=== PATIENT | female | born 2000 | race Caucasian/White ===

== ENCOUNTER 2021-03-14 22:37 | Emergency (ER) | payer OTHER, SELFPAY ==
--- NOTE | ~2021-03-14 | XR_ITS ---
EXAMINATION: XR HAND, RIGHT CLINICAL INFORMATION: Laceration. COMPARISON: None TECHNIQUE: PA, lateral, and oblique views of the right hand. FINDINGS: No radiopaque foreign body. The bones and soft tissues are normal. No fracture. Alignment is anatomic. Joint spaces are maintained. No erosions or soft tissue calcifications. XR/XR hand RT min 3V IMPRESSION: Normal right hand. There is no radiopaque foreign body.
[2021-03-14 22:45] VITALS: BP 109/78; PULSE 72; RESP 16; TEMP 36.9; O2SAT 97; BMI 22.8
--- NOTE | 2021-03-14 23:17 | ED.SKABFB ---
HPI - Skin/Abscess/Foreign Bdy General Chief complaint: Skin/Abscess/Foreign Body Stated complaint: Lac Time Seen by Provider: 03/14/21 23:12 Source: patient Mode of arrival: ambulatory Limitations: no limitations History of Present Illness HPI narrative: Patient is a 20-year-old female with no significant past medical history who was holding a large serrated knife when she bumped into a table and cut herself on her right hand, between her thumb and 2nd finger. She states she has full range of motion and can feel the tips of both fingers, no injury to her wrist. She applied bandages at home and the bleeding is controlled currently. Denies any numbness or tingling. 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 Related Data Allergies Allergy/AdvReac Type Severity Reaction Status Date / Time No Known Allergies Allergy Verified 03/14/21 22:49 Review of Systems Review of Systems: Yes all other systems are reviewed and are negative PMFSH Past Medical History Medical History No known health problems Social History Social History Advance Directives: No Advance Directives Information Provided: Yes Patient : No Physical Exam Vital Signs: Vital Signs: Last Vital Signs Temp 98.5 F 03/14/21 22:45 Pulse 72 03/14/21 22:45 Resp 16 03/14/21 22:45 BP 109/78 03/14/21 22:45 Pulse Ox 97 03/14/21 22:45 Body Mass Index 22.8 Const: General: cooperative, healthy appearing, comfortable, no acute distress and well developed Orientation/consciousness: patient oriented x3 Limitations: no limitations HENMT: Head: Yes normal to inspection Eyes: General: appearance normal, both eyes and all related structures Neck: Neck: Yes normal visual inspection and Yes full ROM Resp: Effort & Inspection: normal respiratory effort and able to speak in complete sentences Skin: General skin exam: no rashes or lesions noted Neuro: General: patient oriented x3 Extrem: General: Yes normal to inspection Right upper extremity: Extremity exam: right hand (3 cm linear laceration on the thenar region of the right hand. ) Details: normal capillary refill, neuromotor exam normal, neurosensory exam normal, tendon exam normal and normal ROM of fingers; Negative for no unusual warmth, no swelling, no abrasions, no ecchymosis and no foreign bodies MDM - Skin/Abscess/Foreign Bdy Imaging Data hand x-ray: Attestation: I personally reviewed and interpreted this imaging study as follows: Radiologist's impression: [address] [address] XRay Report Signed Patient: Mike Diana MR#: [id number] : 2000 Acct:[id number] Age/Sex: 20 / F ADM Date: 03/14/21 Loc: HO.ED Attending Dr: Ordering Physician: Inocencia Boateng PA-C Date of Service: 03/14/21 Procedure(s): XR hand RT min 3V Accession Number(s): [id number] cc: Inocencia Boateng PA-C~ EXAMINATION: XR HAND, RIGHT CLINICAL INFORMATION: Laceration.? COMPARISON: None? TECHNIQUE: PA, lateral, and oblique views of the right hand. FINDINGS: No radiopaque foreign body. The bones and soft tissues are normal. No fracture. Alignment is anatomic. Joint spaces are maintained. No erosions or soft tissue calcifications.? XR/XR hand RT min 3V IMPRESSION: Normal right hand. There is no radiopaque foreign body. Dictated By: KAYY ALVA MD Signed By: <Electronically signed by KAYY ALVA MD in OV> 03/14/21 0642 DD/ 0798 TD/TT:? Optician Apprentice Dispensing: RADHA Procedures Laceration Laceration 1: Site: hand Side (If applicable): right Size (cm): 3 Description: linear Depth: simple, single layer Local Anesthetic: lidocaine 2% Amount of anesthesia used (mL): 5 Pre-repair: wound explored, irrigated extensively and extensive debridement Skin layer closed with: nylon Size (cm): 5-0 Number of sutures: 6 Technique: simple, interrupted Discharge Plan Discharge Clinical Impression: Laceration Patient Disposition: Home, Self-Care Instructions: Laceration (ED), Stitches Removal (ED) Additional Instructions: As discussed, please have your sutures removed in 8-10 days at your PCP office, any urgent care or emergency department. If you notice any redness, any drainage from the wound that is foul smelling, or streaking redness up the arm, please return to the emergency department [facility]. Stand Alone Forms: Work/School Release
[2021-03-14] MEDS: Lidocaine HCl 2 % MPF 5 ML VIAL SUBCUT (23:22)
== END 2021-03-15 00:19 | disposition home or self-care (01) ==
LOC: HO.ED 03-15 00:11
PROVIDERS: Emergency Provider Emergency Medicine Emergency Medical Services; PCP Pediatrics
DX: S61.411A Laceration without foreign body of right hand, initial encounter (principal); M79.641 Pain in right hand; W26.0XXA Contact with knife, initial encounter; Y93.9 Activity, unspecified; Y92.9 Unspecified place or not applicable; Y99.9 Unspecified external cause status
CPT/HCPCS: 12002; 73130; 99283; 99284

== ENCOUNTER 2021-10-19 20:31 | Emergency (ER) | payer OTHER, SELFPAY ==
--- NOTE | ~2021-10-19 | CT_ITS ---
EXAMINATION: CT ABDOMEN AND PELVIS WITH CONTRAST CLINICAL INFORMATION: Epigastric abdominal pain COMPARISON: None TECHNIQUE: Multidetector volumetric images were obtained from the superior aspect of the liver through the pubic symphysis following administration 85 mL of Omnipaque 350 intravenous contrast. Sagittal and coronal reformatted images were obtained on the technologist's workstation. Oral contrast: No This CT examination was performed using dose optimization techniques as appropriate, variously including the following: *Automated exposure control *Adjustment of mA and/or kV according to patient size (this includes techniques or standardized protocols for targeted exams where dose is matched to indication/reason for exam; i.e. extremities or head) *Use of iterative reconstruction technique DLP: 303 mGy-cm FINDINGS: LUNG BASES: The visualized lung bases are unremarkable. LIVER, GALLBLADDER, AND BILIARY TREE: The liver is normal in size, shape, and attenuation. No focal hepatic lesion or biliary ductal dilatation is present. The gallbladder appears contracted and is not well evaluated. PANCREAS: There is a 0.3 cm hypodensity noted in the pancreatic body, as on coronal image 30. No peripancreatic inflammatory change. SPLEEN: Unremarkable. ADRENAL GLANDS: Unremarkable. KIDNEYS AND URETERS: Bilateral nephrograms are symmetric. No hydronephrosis or obstructing calculus identified. Subcentimeter hypodensity in the upper left kidney statistically favors a cyst; no follow-up recommended. BLADDER: Unremarkable. GASTROINTESTINAL TRACT: No evidence of bowel obstruction or significant wall thickening. Appendix is not well delineated, with no inflammatory changes seen in its expected location. No free fluid or free air is seen. ABDOMINAL WALL: No significant hernia is appreciated. LYMPH NODES: Normal. VASCULAR: Unremarkable. PELVIC VISCERA: Unremarkable. OSSEOUS STRUCTURES: Unremarkable. CT/CT abdomen pelvis w con IMPRESSION: 1. No acute findings identified in the abdomen/pelvis. 2. Hypodense structure in the pancreas measuring 0.3 cm, suggestive of a small cyst. This may be further assessed with nonemergent MRI/MRCP. Fleischner guidelines were followed.
[2021-10-19 20:50] VITALS: BP 112/62; PULSE 92; RESP 14; TEMP 36.6; O2SAT 97; BMI 48.9
--- NOTE | 2021-10-19 23:30 | ED_ITS ---
HPI - Female Genitourinary General Chief complaint: Abdominal Pain <JAVAN Schmidt - Last Filed: 10/20/21 02:24> Stated complaint: abd pain <JAVAN Schmidt - Last Filed: 10/20/21 02:24> Time Seen by Provider: 10/19/21 23:28 <JAVAN Schmidt - Last Filed: 10/20/21 02:24> Source: patient <JAVAN Schmidt - Last Filed: 10/20/21 02:24> Mode of arrival: ambulatory <JAVAN Schmidt Last Filed: 10/20/21 02:24> Limitations: no limitations <JAVAN Schmidt Last Filed: 10/20/21 02:24> History of Present Illness HPI Narrative: This is a 21-year-old female no significant medical history presenting to the emergency department with complaints of epigastric pain x1 month and 4 days of progressively worsening vaginal discharge, and itching to the external genitalia. Patient tells me she has a history of recurrent bacterial vaginosis which has recently been treated. Patient tells me that she has been having white creamy vaginal discharge that is coming from inside her vagina. She also tells me that she has noted creamy/chunky white discharge to her external genitalia and rectal area she tells me these areas are itchy. She also notes that her tongue has been white. She is also reporting epigastric pain that is intermittent in nature described as a stabbing/burning sensation. This has been going on for a month. She is sexually active, does not wear protection. She does not think she is . Low suspicion for STD she thinks. However unsure. She denies fevers, chills, chest pain, shortness of breath, weakness, lethargy, dyspareunia. <JAVAN Schmidt Last Filed: 10/20/21 02:24> MD elicited complaint: dysuria, vaginal discharge, genital rash and genital itching <JAVAN Schmidt Last Filed: 10/20/21 02:24> Onset (ago): week(s) (1) <JAVAN Schmidt Last Filed: 10/20/21 02:24> Location of symptoms: external genitalia and perineum <JAVAN Schmidt - Last Filed: 10/20/21 02:24> Severity: severe <JAVAN Schmidt - Last Filed: 10/20/21 02:24> Female Urogenital Radiation: Non-Radiating <JAVAN Schmidt - Last Filed: 10/20/21 02:24> Quality of pain: burning and other (Itching) <JAVAN Schmidt - Last Filed: 10/20/21 02:24> Consistency: constant <JAVAN Schmidt - Last Filed: 10/20/21 02:24> Vaginal discharge: white, thick/cheesy and creamy <JAVAN Schmidt - Last Filed: 10/20/21 02:24> Vaginal bleeding: other (Patient currently on her period.) <JAVAN Schmidt - Last Filed: 10/20/21 02:24> Urinary symptoms: Dysuria <JAVAN Schmidt - Last Filed: 10/20/21 02:24> Exacerbating factors: none <JAVAN Schmidt Last Filed: 10/20/21 02:24> Relieving factors: none <JAVAN Schmidt - Last Filed: 10/20/21 02:24> Associated symptoms: abdominal pain <JAVAN Schmidt - Last Filed: 10/20/21 02:24> Treatment prior to arrival: none <JAVAN Schmidt Last Filed: 10/20/21 02:24> Sexual activity: Yes <JAVAN Schmidt Last Filed: 10/20/21 02:24> Patient : No <JAVAN Schmidt - Last Filed: 10/20/21 02:24> Related Data Home medications: Previous Rx's Medication Instructions Recorded doxycycline hyclate 100 mg tablet 100 mg PO BID 7 Days #14 tab 10/20/21 fluconazole 150 mg tablet 150 mg PO DAILY #1 tab 10/20/21 <JAVAN Schmidt - Last Filed: 10/20/21 02:24> Allergies/Adverse reactions: Allergies Allergy/AdvReac Type Severity Reaction Status Date / Time No Known Allergies Allergy Verified 10/19/21 20:55 <JAVAN Schmidt - Last Filed: 10/20/21 02:24> Review of Systems Review of Systems: Constitutional : No Fever, No Chills ENT/Mouth : No sore throat, No Rhinorrhea Eyes: No Eye Pain, No Redness Cardiovascular : No Chest Pain, No SOB Respiratory : No Cough, No Sputum, No Wheezing Gastrointestinal : positive Nausea, No Vomiting, No Diarrhea, positive abdominal pain, Genitourinary : positive irregular vaginal discharge, No Dysuria, No Urinary Frequency, No pelvic pain Musculoskeletal : No Myalgias Skin : No rash Neuro : No Weakness, No Headache Psych : No Anxiety/Panic, No Depression All other systems reviewed and are negative <JAVAN Schmidt - Last Filed: 10/20/21 02:24> Yes all other systems are reviewed and are negative <JAVAN Schmidt - Last Filed: 10/20/21 02:24> [facility] Past Medical History Attestation statement: The following information was validated with the patient. <JAVAN Schmidt - Last Filed: 10/20/21 02:24> Source: old records reviewed and nursing notes reviewed <JAVAN Schmidt - Last Filed: 10/20/21 02:24> Medical History: Medical History No known health problems <JAVAN Schmidt - Last Filed: 10/20/21 02:24> Social History Social History: Social History Advance Directives: No Advance Directives Information Provided: Yes Patient : No <JAVAN Schmidt Last Filed: 10/20/21 02:24> Physical Exam Vital Signs: Vital Signs: Last Vital Signs Temp 97.9 F 10/20/21 00:06 Pulse 76 10/20/21 00:06 Resp 16 10/20/21 00:06 BP 107/62 10/20/21 00:06 Pulse Ox 97 10/20/21 00:06 BMI result Body Mass Index 48.9 VSS <JAVAN Schmidt - Last Filed: 10/20/21 02:24> Appearance: Alert.? Oriented X3.? No acute distress.? Head: Normocephalic, atraumatic, no step-offs or deformities Eyes: Pupils equal, round and reactive to light.? ENT: Pharynx normal.? Neck: Normal inspection.? Neck supple.? CVS: Normal heart rate and rhythm.? Pulses normal.? Respiratory: No respiratory distress.? Breath sounds normal.? Abdomen: Soft and nontender.? Skin: Skin warm and dry.? Normal skin color.? Normal skin turgor.? Extremities: No lower extremity edema.? No calf ttp. 5/5 strength to bilateral upper and lower extremities Sensative exam: flight reservations manager w/ mother and tech in room. No cervical motion tenderness. No lumps or masses upon palpation. Cervix closed, vaginal bleeding however patient is on menses. Scant white discharge. On the outside of the vagina noted curd like cheesy discharge. Likely yeast. Also noted in the perineal area. Excoriations Back: No midline tenderness, no C-spine tenderness, full range of motion, no CVA tenderness bilaterally Neuro: Oriented X 3.? No motor deficit.? No sensory deficit. CN 2-12 intact <JAVAN Schmidt - Last Filed: 10/20/21 02:24> Course Reevaluation(s) Reevaluation #1: CBC with no acute findings. Chemistry no acute electrolyte abnormalities. Urine not concerning for infection. There is blood in urine likely secondary to patient being on her menses. Serology of candidiasis, gonorrhea, chlamydia, Trichomonas pending. CT of abdomen pelvis pending. Patient was medicated here with Diflucan and Rocephin. <JAVAN Schmidt - Last Filed: 10/20/21 02:24> Time: 00:29 <JAVAN Schmidt - Last Filed: 10/20/21 02:24> Reevaluation #2: CT of the abdomen and pelvis with no acute findings. There is a hypodense structure in the pancreas measuring 0.3 cm suggestive of small cyst. Which can be further evaluated with nonemergent MRI/MRCP. At this time patient will be discharged home. Patient's epigastric pain likely secondary to gastritis/gastric ulcers. Advised her to take with her PCP prescribed her for this. Comfortable discharge home with PCP and GI follow-up <JAVAN Schmidt - Last Filed: 10/20/21 02:24> Time: 02:24 <JAVAN Schmidt - Last Filed: 10/20/21 02:24> MDM - Female Genitourinary MDM Narrative Medical decision making narrative: [age] yo f presents w/ vaginal discharge, and epigastric pain. Physical examination significant for No cervical motion tenderness. No lumps or masses upon palpation. Cervix closed, vaginal bleeding however patient is on menses. Scant white discharge. On the outside of the vagina noted curd like ch eesy discharge. Likely yeast. Also noted in the perineal area. Excoriations. Vital signs are stable. Lungs clear. Regular rate and rhythm. Mild tenderness to palpation in epigastric region. Abdominal pain is likely gastritis or ulcer. Unlikely appendicitis. Vaginal discharge consistent with yeast. Swabs have been sent. Will prophylactically treat for gonorrhea and chlamydia as well as there is some suspicion. Plan at this time is labs, swabs, CT of abdomen and pelvis, UA. <JAVAN Schmidt - Last Filed: 10/20/21 02:24> Medical Records Attestation: I reviewed the patient's medical records. <JAVAN Schmidt Last Filed: 10/20/21 02:24> Lab Data Attestation: I reviewed the patient's lab results. <JAVAN Schmidt - Last Filed: 10/20/21 02:24> Result diagrams: : 10/20/21 00:02 10/20/21 00:02 <JAVAN Schmidt Last Filed: 10/20/21 02:24> Labs: Lab Results 10/20/21 10/20/21 10/20/21 Range/Units 00:02 00:02 00:07 WBC 9.3 (4.8-10.8) X10*3/uL RBC 4.18 L (4.20-5.50) X10*6/uL Hgb 12.3 (12.0-16.0) g/dl Hct 36.1 L (37.0-47.0) % MCV 86.4 (80.0-98.0) fL MCH 29.4 (27.0-33.0) pg MCHC 34.1 (31.0-35.0) g/dl RDW 12.4 (11.0-16.0) % Plt Count 258 (160-400) X10*3/uL MPV 9.5 (9.4-12.3) fL Immature Gran % (Auto) 0.4 (0.0-0.4) % Neut % (Auto) 56.8 (45-73) % Lymph % (Auto) 33.6 (20-40) % Jackson % (Auto) 6.1 (2-11) % Eos % (Auto) 2.5 (0-4) % Baso % (Auto) 0.6 (0-2) % Lymph # (Auto) 3.1 (1.2-4.9) X10*3/uL Jackson # (Auto) 0.6 (0.1-1.2) X10*3/uL Eos # (Auto) 0.2 (0.0-0.4) X10*3/uL Baso # (Auto) 0.1 (0.0-0.2) X10*3/uL Abs Immat Gran (auto) 0.04 H (0.00-0.03) X10*3/uL Absolute Neuts (auto) 5.3 (2.0-8.3) x10*3/uL Absolute Nucleated RBC 0.000 (0.0-0.012) X10*3/uL Nucleated RBC % (auto) 0.0 (0.0-0.2) /100WBC Sodium 141 (135-145) mmol/L Potassium 4.1 (3.3-5.1) mmol/L Chloride 105 (96-108) mmol/L Carbon Dioxide 28 (22-29) mmol/L Anion Gap 12 (12-20) BUN 15 (9-16) mg/dL Creatinine 0.74 (0.5-1.4) mg/dL Estim Creat Clear Calc 133.8 Estimated GFR > 60 Random Glucose 89 (60-115) mg/dL Calcium 10.0 (8.4-10.2) mg/dL Total Bilirubin 0.3 (0.0-1.0) mg/dL AST 27 (5-31) U/L ALT 27 (0-31) U/L Alkaline Phosphatase 78 (39-117) U/L Total Protein 7.8 (6.5-8.0) g/dL Albumin 4.4 (3.5-5.0) g/dL Lipase 64 (8-78) U/L Urine Color YELLOW Urine Appearance TURBID Urine pH 6.0 (5.0-8.0) Ur Specific [place] 1.025 (1.005-1.025) Urine Protein TRACE (NEG-TRACE) MG/DL Urine Glucose (UA) NEG (NEG) MG/DL Urine Ketones NEG (NEG) MG/DL Urine Blood 3+ H (NEG) Urine Nitrite NEG (NEG) Ur Leukocyte Esterase TRACE H (NEG) Urine RBC 30-49 H (0) /HPF Urine WBC 1-4 (0-4) /HPF Ur Squamous Epith Cells 1+ /LPF Urine Bacteria TRACE /LPF Urine Mucus 1+ /LPF Urine Test (NEGATIVE) 10/20/21 Range/Units 00:07 WBC (4.8-10.8) X10*3/uL RBC (4.20-5.50) X10*6/uL Hgb (12.0-16.0) g/dl Hct (37.0-47.0) % MCV (80.0-98.0) fL MCH (27.0-33.0) pg MCHC (31.0-35.0) g/dl RDW (11.0-16.0) % Plt Count (160-400) X10*3/uL MPV (9.4-12.3) fL Immature Gran % (Auto) (0.0-0.4) % Neut % (Auto) (45-73) % Lymph % (Auto) (20-40) % Jackson % (Auto) (2-11) % Eos % (Auto) (0-4) % Baso % (Auto) (0-2) % Lymph # (Auto) (1.2-4.9) X10*3/uL Jackson # (Auto) (0.1-1.2) X10*3/uL Eos # (Auto) (0.0-0.4) X10*3/uL Baso # (Auto) (0.0-0.2) X10*3/uL Abs Immat Gran (auto) (0.00-0.03) X10*3/uL Absolute Neuts (auto) (2.0-8.3) x10*3/uL Absolute Nucleated RBC (0.0-0.012) X10*3/uL Nucleated RBC % (auto) (0.0-0.2) /100WBC Sodium (135-145) mmol/L Potassium (3.3-5.1) mmol/L Chloride (96-108) mmol/L Carbon Dioxide (22-29) mmol/L Anion Gap (12-20) BUN (9-16) mg/dL Creatinine (0.5-1.4) mg/dL Estim Creat Clear Calc Estimated GFR Random Glucose (60-115) mg/dL Calcium (8.4-10.2) mg/dL Total Bilirubin (0.0-1.0) mg/dL AST (5-31) U/L ALT (0-31) U/L Alkaline Phosphatase (39-117) U/L Total Protein (6.5-8.0) g/dL Albumin (3.5-5.0) g/dL Lipase (8-78) U/L Urine Color Urine Appearance Urine pH (5.0-8.0) Ur Specific [place] (1.005-1.025) Urine Protein (NEG-TRACE) MG/DL Urine Glucose (UA) (NEG) MG/DL Urine Ketones (NEG) MG/DL Urine Blood (NEG) Urine Nitrite (NEG) Ur Leukocyte Esterase (NEG) Urine RBC (0) /HPF Urine WBC (0-4) /HPF Ur Squamous Epith Cells /LPF Urine Bacteria /LPF Urine Mucus /LPF Urine Test NEGATIVE (NEGATIVE) <JAVAN Schmidt - Last Filed: 10/20/21 02:24> Critical Care Time Critical Care Time Critical Care Time: No <JAVAN Schmidt - Last Filed: 10/20/21 02:24> Discharge Plan Discharge Clinical Impression: Vaginal discharge, Abdominal pain, Candidiasis of vagina, Pancreas cyst <JAVAN Schmidt - Last Filed: 10/20/21 02:24> Patient Disposition: Home, Self-Care <JAVAN Schmidt Last Filed: 10/20/21 02:24> Instructions: Abdominal Pain (ED), Vaginal Discharge (ED) <JAVAN Schmidt Last Filed: 10/20/21 02:24> Additional Instructions: Take your medications as prescribed. If you were prescribed antibiotics today, it is important that you take your medication to their entirety, do not skip any doses, do not finish them early. Follow-up with your primary care provider this week. Follow-up with OBGYN. Follow-up with a GI of your abdominal pain persists. Return to the emergency department with new or worsening symptoms. Such as fevers, chills, chest pain, shortness of breath, nausea, vomiting, dizziness, headache, vision changes, lethargy Please discuss CT scan findings with your primary care provider. This may require a non emergent MRI/MRCP. I suspect that her epigastric pain is from gastritis or an ulcer. Please take the medication prescribed by your PCP In case of emergency call 911 CT/CT abdomen pelvis w con IMPRESSION: 1.? No acute findings identified in the abdomen/pelvis. 2.? Hypodense structure in the pancreas measuring 0.3 cm, suggestive of a small cyst. This may be further assessed with nonemergent MRI/MRCP. ? Fleischner guidelines were followed. <JAVAN Schmidt Last Filed: 10/20/21 02:24> Prescriptions: New fluconazole 150 mg tablet 150 mg PO DAILY Qty: 1 0RF doxycycline hyclate 100 mg tablet 100 mg PO BID 7 Days Qty: 14 0RF <JAVAN Schmidt Last Filed: 10/20/21 02:24> Referrals: Rosa Gonzalez MD [Primary Care Provider] - 2 days Darek Hutton MD [Physician] - 1 week <JAVAN Schmidt Last Filed: 10/20/21 02:24> Stand Alone Forms: Work/School Release <JAVAN Schmidt Last Filed: 10/20/21 02:24>
[2021-10-20 00:06] VITALS: BP 107/62; PULSE 76; RESP 16; TEMP 36.6; O2SAT 97
[2021-10-20 00:08] LABS: Basophils Absolute Auto 0.1 X10*3/uL (0.0-0.2); Basophils Percent Auto 0.6 % (0-2); Eosinophils Absolute Auto 0.2 X10*3/uL (0.0-0.4); Eosinophils Percent Auto 2.5 % (0-4); Hematocrit 36.1 % (37.0-47.0); Hemoglobin 12.3 g/dl (12.0-16.0); Imm Gran Abs Auto 0.04 X10*3/uL (0.00-0.03); Imm Gran Pct Auto 0.4 % (0.0-0.4); Lymphocytes Absolute Auto 3.1 X10*3/uL (1.2-4.9); Lymphocytes Percent Auto 33.6 % (20-40); MANUAL DIFF FLAG NO; Mean Corpuscular HGB Conc 34.1 g/dl (31.0-35.0); Mean Corpuscular Hemoglobin 29.4 pg (27.0-33.0); Mean Corpuscular Volume 86.4 fL (80.0-98.0); Mean Platelet Volume 9.5 fL (9.4-12.3); Monocytes Absolute Auto 0.6 X10*3/uL (0.1-1.2); Monocytes Percent Auto 6.1 % (2-11); Neutrophils Absolute Auto 5.3 x10*3/uL (2.0-8.3); Neutrophils Percent Auto 56.8 % (45-73); Platelet Count 258 X10*3/uL (160-400); Red Blood Count 4.18 X10*6/uL (4.20-5.50); Red Cell Distribution Width 12.4 % (11.0-16.0); White Blood Count 9.3 X10*3/uL (4.8-10.8)
[2021-10-20 00:13] LABS: Appearance Urine TURBID; Color Urine YELLOW; Glucose Urine UA NEG (NEG); Leukocyte Esterase Urine TRACE (NEG); Nitrite Urine NEG (NEG); Specific Gravity - Urine 1.025 (1.005-1.025); UACC Culture Trigger YES; Urine Blood 3+ (NEG); Urine Ketones NEG (NEG); Urine Protein TRACE MG/DL (NEG-TRACE)
[2021-10-20 00:16] LABS: UPreg QC Valid YES; Urine Pregnancy NEGATIVE (NEGATIVE)
[2021-10-20 00:22] LABS: Bacteria Urine TRACE /LPF; Mucus Urine 1+ /LPF; RBC Urine 30-49 /HPF (0); Squamous Epithelial Cell Urine 1+ /LPF
[2021-10-20 00:25] LABS: Alanine Aminotransferase 27 U/L (0-31); Albumin Level 4.4 g/dL (3.5-5.0); Alkaline Phosphatase 78 U/L (39-117); Anion Gap 12 (12-20); Aspartate Amino Transferase 27 U/L (5-31); Bilirubin Total 0.3 mg/dL (0.0-1.0); Blood Urea Nitrogen 15 mg/dL (9-16); Carbon Dioxide 28 mmol/L (22-29); Chloride 105 mmol/L (96-108); Creatinine Clr Calc Pharmacy 133.8; Estimated Glomerular Filt Rate > 60; Glucose Random 89 mg/dL (60-115); Lipase 64 U/L (8-78); Potassium 4.1 mmol/L (3.3-5.1); Sodium 141 mmol/L (135-145); Total Protein 7.8 g/dL (6.5-8.0)
[2021-10-20] MEDS: Fluconazole 150 MG TABLET PO (00:30)
[2021-10-20] MEDS: cefTRIAXone sodium 500 MG, Lidocaine HCl 1 % MPF 1 ML IM (00:31)
[2021-10-20] MEDS: iohexoL 350 MG/ML 100 ML INFUS..BTL 85 ML IV (01:18)
[2021-10-20 13:12] LABS: BV Int Neg Control Negative (Negative); BV Int Pos Control Positive (Positive)
[2021-10-20 15:39] LABS: CT PCR NOT DETECTED (Not Detect.); NG PCR NOT DETECTED (Not Detect.)
== END 2021-10-20 02:45 | disposition home or self-care (01) ==
PROVIDERS: Physician Assistant; Emergency Provider Emergency Medicine; PCP Pediatrics
DX: R10.13 Epigastric pain (principal); B37.3 Candidiasis of vulva and vagina; K86.2 Cyst of pancreas; N89.8 Other specified noninflammatory disorders of vagina
CPT/HCPCS: 36415; 74177; 80053; 81001; 81025; 83690; 85025; 87086; 87480; 87491; 87510; 87591; 87660; 96372; 99283; 99284; J0696; Q9967

== ENCOUNTER 2023-01-01 19:01 | Emergency (ER) | payer OTHER, SELFPAY ==
[2023-01-01 19:18] VITALS: BP 124/78; PULSE 78; RESP 18; TEMP 36; O2SAT 99; BMI 20.6
--- NOTE | 2023-01-01 19:19 | ED.NAVMDI ---
HPI - Nausea/Vomiting/Diarrhea General Chief complaint: Nausea/Vomiting/Diarrhea Stated complaint: diarrhea and vomiting for past week Time Seen by Provider: 01/01/23 22:03 Source: patient Mode of arrival: ambulatory Limitations: no limitations History of Present Illness HPI Narrative: Patient with no significant past medical history been having nausea vomiting and diarrhea for last 1 week have watery stool more than 10 times a day and similar amount of vomiting with diffuse abdominal cramps no recent travel no sea food intake no fever or chills no antibiotic use Related Data Previous Rx's Medication Instructions Recorded doxycycline hyclate 100 mg tablet 100 mg PO BID 7 days #14 tabs 10/20/21 fluconazole 150 mg tablet 150 mg PO DAILY #1 tab 10/20/21 ciprofloxacin HCl 500 mg tablet 500 mg PO BID #6 tabs 01/02/23 (Cipro) dicyclomine 20 mg tablet 20 mg PO QID PRN abdominal pain 01/02/23 #20 tabs metronidazole 500 mg tablet 500 mg PO BID 10 days #20 tabs 01/02/23 ondansetron 4 mg disintegrating 4 mg PO Q6-8H PRN nausea and 01/02/23 tablet vomiting #7 tabs Allergies Allergy/AdvReac Type Severity Reaction Status Date / Time No Known Allergies Allergy Verified 10/19/21 20:55 Review of Systems Review of Systems: Yes all other systems are reviewed and are negative [facility] Past Medical History Medical History No known health problems Social History Social History Advance Directives: No Advance Directives Information Provided: No Physical Exam Vital Signs: Vital Signs: Last Vital Signs Temp 96.8 F 01/01/23 19:18 Pulse 78 01/01/23 19:18 Resp 18 01/01/23 19:18 BP 124/78 01/01/23 19:18 Pulse Ox 99 01/01/23 19:18 O2 Del Method Room Air 01/01/23 19:18 BMI result Body Mass Index 20.6 Appearance: Alert. Oriented X3. No acute distress. Eyes: No pallor or icterus ENT: Pharynx normal. Oral Mucosa moist Neck: Normal inspection. Neck supple. CVS: Normal heart rate and rhythm. Pulses normal. Respiratory: No respiratory distress. Equal air entry bilateral, no wheezing/rales/rhonchi Abdomen: Soft, diffuse abdominal tenderness no rebound tenderness or guarding. Bowel sounds are present, no mass palpable, no CVA tenderness Skin: Skin warm and dry. Normal skin color. Normal skin turgor. Extremities: No lower extremity edema. No calf tenderness Neuro: Oriented X 3. No motor deficit. Course Course Course Narrative: RME: 22yo F w/no sig PMHx c/o nausea, vomiting and diarrhea x1 week w/ assoc upper abdominal pain. Denies fever, chills, urinary symptoms Labs, UA ordered Full HPI, ROS and PE to be performed by primary ED provider. Medications Administered Discontinued Medications Generic Name Dose Route Start Last Admin Trade Name Freq PRN Reason Stop Dose Admin Dicyclomine HCl 20 mg 01/01/23 22:09 01/01/23 23:00 Dicyclomine Hcl 10 Mg Capsule PO 01/01/23 22:10 20 mg ONCE ONE Administration Ondansetron HCl 4 mg 01/01/23 22:09 01/01/23 23:00 Ondansetron Odt 4 Mg Tab.Rapdis TRANSLINGU 01/01/23 22:10 4 mg ONCE ONE Administration Medical Decision Making Medical Decision Making [facility] Narrative: Patient with acute gastritis enteritis symptoms no symptoms at this time labs are stable now patient states that she has this diarrhea nausea vomiting for more than a month of likely patient has IBS discharge patient home on tramadol/Zofran Differential Diagnosis Differential Diagnoses: The differential diagnosis associated with the presentation includes Lab Data MDM Lab Attestation statement: I reviewed the patient's lab results. 01/01/23 20:50 01/01/23 20:50 Labs: Lab Results 01/01/23 01/01/23 01/01/23 Range/Units 20:50 20:50 23:22 WBC 7.3 (4.8-10.8) X10*3/uL RBC 4.47 (4.20-5.50) X10*6/uL Hgb 13.7 (12.0-16.0) g/dl Hct 38.5 (37.0-47.0) % MCV 86.1 (80.0-98.0) fL MCH 30.6 (27.0-33.0) pg MCHC 35.6 H (31.0-35.0) g/dl RDW 12.0 (11.0-16.0) % Plt Count 265 (160-400) X10*3/uL MPV 9.5 (9.4-12.3) fL Immature Gran % (Auto) 0.1 (0.0-0.4) % Neut % (Auto) 48.1 (45-73) % Lymph % (Auto) 42.1 H (20-40) % [place] % (Auto) 7.1 (2-11) % Eos % (Auto) 2.2 (0-4) % Baso % (Auto) 0.4 (0-2) % Lymph # (Auto) 3.1 (1.2-4.9) X10*3/uL [place] # (Auto) 0.5 (0.1-1.2) X10*3/uL Eos # (Auto) 0.2 (0.0-0.4) X10*3/uL Baso # (Auto) 0.0 (0.0-0.2) X10*3/uL Abs Immat Gran (auto) 0.01 (0.00-0.03) X10*3/uL Absolute Neuts (auto) 3.5 (2.0-8.3) x10*3/uL Absolute Nucleated RBC 0.000 (0.0-0.012) X10*3/uL Nucleated RBC % (auto) 0.0 (0.0-0.2) /100WBC Sodium 139 (135-145) mmol/L Potassium 4.1 (3.3-5.1) mmol/L Chloride 108 (96-108) mmol/L Carbon Dioxide 23 (22-29) mmol/L Anion Gap 12 (12-20) BUN 9 (9-16) mg/dL Creatinine 0.76 (0.5-1.4) mg/dL Estim Creat Clear Calc 100.6 Estimated GFR > 60 Random Glucose 92 (60-115) mg/dL Calcium 9.6 (8.4-10.2) mg/dL Magnesium 1.8 (1.6-2.6) mg/dL Total Bilirubin 0.7 (0.0-1.0) mg/dL Direct Bilirubin 0.2 (0.0-0.5) mg/dL AST 23 (5-31) U/L ALT 22 (0-31) U/L Alkaline Phosphatase 77 (39-117) U/L Total Protein 8.0 (6.5-8.0) g/dL Albumin 4.6 (3.5-5.0) g/dL Lipase 36 (8-78) U/L Urine Color Dark Yellow Urine Appearance Clear Urine pH 5.5 (5.0-9.0) Ur Specific [place] 1.025 (1.005-1.025) Urine Protein Negative (Neg-Trace) mg/dL Urine Glucose (UA) Negative (Negative) mg/dL Urine Ketones Trace (Negative) mg/dL Urine Blood Negative (Negative) Urine Nitrite Negative (Negative) Ur Leukocyte Esterase Negative (Negative) Urine Test (NEGATIVE) 01/01/23 Range/Units 23:22 WBC (4.8-10.8) X10*3/uL RBC (4.20-5.50) X10*6/uL Hgb (12.0-16.0) g/dl Hct (37.0-47.0) % MCV (80.0-98.0) fL MCH (27.0-33.0) pg MCHC (31.0-35.0) g/dl RDW (11.0-16.0) % Plt Count (160-400) X10*3/uL MPV (9.4-12.3) fL Immature Gran % (Auto) (0.0-0.4) % Neut % (Auto) (45-73) % Lymph % (Auto) (20-40) % [place] % (Auto) (2-11) % Eos % (Auto) (0-4) % Baso % (Auto) (0-2) % Lymph # (Auto) (1.2-4.9) X10*3/uL [place] # (Auto) (0.1-1.2) X10*3/uL Eos # (Auto) (0.0-0.4) X10*3/uL Baso # (Auto) (0.0-0.2) X10*3/uL Abs Immat Gran (auto) (0.00-0.03) X10*3/uL Absolute Neuts (auto) (2.0-8.3) x10*3/uL Absolute Nucleated RBC (0.0-0.012) X10*3/uL Nucleated RBC % (auto) (0.0-0.2) /100WBC Sodium (135-145) mmol/L Potassium (3.3-5.1) mmol/L Chloride (96-108) mmol/L Carbon Dioxide (22-29) mmol/L Anion Gap (12-20) BUN (9-16) mg/dL Creatinine (0.5-1.4) mg/dL Estim Creat Clear Calc Estimated GFR Random Glucose (60-115) mg/dL Calcium (8.4-10.2) mg/dL Magnesium (1.6-2.6) mg/dL Total Bilirubin (0.0-1.0) mg/dL Direct Bilirubin (0.0-0.5) mg/dL AST (5-31) U/L ALT (0-31) U/L Alkaline Phosphatase (39-117) U/L Total Protein (6.5-8.0) g/dL Albumin (3.5-5.0) g/dL Lipase (8-78) U/L Urine Color Urine Appearance Urine pH (5.0-9.0) Ur Specific [place] (1.005-1.025) Urine Protein (Neg-Trace) mg/dL Urine Glucose (UA) (Negative) mg/dL Urine Ketones (Negative) mg/dL Urine Blood (Negative) Urine Nitrite (Negative) Ur Leukocyte Esterase (Negative) Urine Test NEGATIVE (NEGATIVE) Discharge Plan Discharge Clinical Impression: Gastroenteritis Patient Disposition: Home, Self-Care Instructions: Gastroenteritis (ED) Additional Instructions: Drink plenty of fluids Med for nausea abdominal cramps as prescribed Take antibiotics as prescribed Follow with PCP for further management Cause of diarrhea and vomiting not clear Trial of antibiotics and follow up with PCP required Prescriptions: New dicyclomine 20 mg tablet 20 mg PO QID PRN (Reason: abdominal pain) Qty: 20 0RF ondansetron 4 mg tablet,disintegrating 4 mg PO Q6-8H PRN (Reason: nausea and vomiting) Qty: 7 0RF ciprofloxacin HCl [Cipro] 500 mg tablet 500 mg PO BID Qty: 6 0RF metronidazole 500 mg tablet 500 mg PO BID 10 Days Qty: 20 0RF No Action fluconazole 150 mg tablet 150 mg PO DAILY Qty: 1 0RF doxycycline hyclate 100 mg tablet 100 mg PO BID 7 Days Qty: 14 0RF
[2023-01-01 20:54] LABS: MANUAL DIFF FLAG NO
[2023-01-01 20:55] LABS: Basophils Percent Auto 0.4 % (0-2); Eosinophils Absolute Auto 0.2 X10*3/uL (0.0-0.4); Eosinophils Percent Auto 2.2 % (0-4); Hematocrit 38.5 % (37.0-47.0); Hemoglobin 13.7 g/dl (12.0-16.0); Imm Gran Abs Auto 0.01 X10*3/uL (0.00-0.03); Imm Gran Pct Auto 0.1 % (0.0-0.4); Lymphocytes Absolute Auto 3.1 X10*3/uL (1.2-4.9); Lymphocytes Percent Auto 42.1 % (20-40); Mean Corpuscular HGB Conc 35.6 g/dl (31.0-35.0); Mean Corpuscular Hemoglobin 30.6 pg (27.0-33.0); Mean Corpuscular Volume 86.1 fL (80.0-98.0); Mean Platelet Volume 9.5 fL (9.4-12.3); Monocytes Absolute Auto 0.5 X10*3/uL (0.1-1.2); Monocytes Percent Auto 7.1 % (2-11); Neutrophils Absolute Auto 3.5 x10*3/uL (2.0-8.3); Neutrophils Percent Auto 48.1 % (45-73); Platelet Count 265 X10*3/uL (160-400); Red Blood Count 4.47 X10*6/uL (4.20-5.50); White Blood Count 7.3 X10*3/uL (4.8-10.8)
[2023-01-01 21:14] LABS: Alanine Aminotransferase 22 U/L (0-31); Albumin Level 4.6 g/dL (3.5-5.0); Alkaline Phosphatase 77 U/L (39-117); Anion Gap 12 (12-20); Aspartate Amino Transferase 23 U/L (5-31); Bilirubin Direct 0.2 mg/dL (0.0-0.5); Bilirubin Total 0.7 mg/dL (0.0-1.0); Blood Urea Nitrogen 9 mg/dL (9-16); Calcium 9.6 mg/dL (8.4-10.2); Carbon Dioxide 23 mmol/L (22-29); Chloride 108 mmol/L (96-108); Creatinine Clr Calc Pharmacy 100.6; Estimated Glomerular Filt Rate > 60; Glucose Random 92 mg/dL (60-115); Lipase 36 U/L (8-78); Magnesium 1.8 mg/dL (1.6-2.6); Potassium 4.1 mmol/L (3.3-5.1); Sodium 139 mmol/L (135-145)
--- OUTSIDE RECORDS SUMMARY | 2023-01-01 22:01 | XMS_ITS | Continuity of Care Document ---
Author Name Unknown Organization [facility] Address [address] [place] [address]- Care Team Providers Care Corporate Development Analyst Name Role Phone Branch Rosa PEÑA Primary Care Physician [facility]counter [facility] Date(s): 10/26/20 - 11/25/20 [facility] [address] [place] [address]- Attending Physician: Vanesa Oquendo Admitting Physician: Vanesa Oquendo Referring Physician: AdmVanesa remy Allergies, Adverse Reactions, Alerts Substance Reaction Severity Status Other Food Allergy 1 vomiting Active 1Candy [place] Immunizations Given and Recorded Vaccine Date Status Refusal Reason Meningococcal Conjugate Vaccine 1 06/09/17 Given Meningococcal Conjugate Vaccine 2 06/08/12 Given Human Papillomavirus Vaccine 04/14/15 Given Human Papillomavirus Vaccine 03/15/14 Given tetanus/diphtheria/pertussis, acel(Tdap) 3 06/08/12 Given Varicella Virus Vaccine 4 06/08/12 Given Varicella Virus Vaccine 07/05/02 Given influenza virus vaccine, live 5 06/08/12 Given influenza virus vaccine, inactivated 6 05/29/10 Gi jennifer Influenza Vaccine (oldterm) 7 09/21/09 Given influ virus vac, H1N1, inactive(oldterm) 8 09/21/09 Given influ virus vac, H1N1, inactive(oldterm) 06/20/09 Given Influenza Inactive (IM) (oldterm) 06/14/05 Given Measles/Mumps/Rubella Virus Vaccine 06/14/05 Given Measles/Mumps/Rubella Virus Vaccine 07/05/02 Given Polio Vaccine, Live (oldterm) 9 06/04/05 Given Polio Vaccine, Live (oldterm) 10 01/26/02 Given Polio Vaccine, Live (oldterm) 11 01 Given Polio Vaccine, Live (oldterm) 12 01 Given Diphth/Pertussis,Acel/Tetanus (oldterm) 06/04/05 G iven Diphth/Pertussis,Acel/Tetanus (oldterm) 09/06/02 G iven Diphth/Pertussis,Acel/Tetanus (oldterm) 01 G iven Diphth/Pertussis,Acel/Tetanus (oldterm) 01 G iven Diphth/Pertussis,Acel/Tetanus (oldterm) 01 G iven Haemophilus B Conj Vaccine (oldterm) 09/06/02 Give n Haemophilus B Conj Vaccine (oldterm) 01 Give n Haemophilus B Conj Vaccine (oldterm) 01 Give n Haemophilus B Conj Vaccine (oldterm) 01 Give n Pneumococcal Conjugate (PCV7) (oldterm) 07/05/02 G iven Pneumococcal Conjugate (PCV7) (oldterm) 01 G iven Pneumococcal Conjugate (PCV7) (oldterm) 01 G iven Pneumococcal Conjugate (PCV7) (oldterm) 01 G iven Hepatitis B Vaccine (old term) 01/26/02 Given Hepatitis B Vaccine (old term) 01 Given Hepatitis B Vaccine (old term) 01 Given 1Admin Note: [facility] [id number] 2Admin Note: VIS dated 05/24/11 given 3Admin Note: VIS dated 09/03/11 given 4Admin Note: VIS dated 10/22/2007 given 5Admin Note: VIS sheet dated 02/10/12 given 6Admin Note: vis given 08.10 7Admin Note: VIS 04/09/09 GIVEN 8Admin Note: VIS05/12/09 GIVEN 9Admin Note: POLIO(oral) 10Admin Note: POLIO(oral) 11Admin Note: POLIO(oral) 12Admin Note: POLIO(oral) Medications hydrocortisone 2.5% topical ointment 1 application, Topically, 3 times a day, # 20 Gm, 0 Refills, Maintenance, 02/18/20 17:57:00 EDT, Ointment, [facility] #[id number], 1 application Topically 3 times a day,x7 days, 152.5, cm, 08/31/19 15:09:00 EST, Height, 49.6, kg, 06/29/19 10:29:0... Start Date: 02/18/20 Stop Date: 02/25/20 Status: Ordered hydrocortisone topical 25 mg suppository 1 supp = 25 mg, Rectally, 2 times a day, # 28 supp, 1 Refills, Maintenance, 08/10/20 15:14:00 EST, Suppository, [facility] #[id number], Partial fill upon patient request if the prescription is for a schedule II opioid drug., 152.5, cm, 07/14/20 1... Start Date: 08/10/20 Stop Date: 09/07/20 Status: Ordered ibuprofen 400 mg oral tablet 400 mg, 1, tablet, By Mouth, Every 6 hours, PRN, # 30 tablet, Refills 2, Tot. Refills 2, Maintenance, as needed for menstrual pain, 06/29/19 10:54:35 EST, Route to Pharmacy Electronically, [id number], [facility] #[id number] Start Date: 06/29/19 Status: Ordered Xulane 150 mcg-35 mcg/24 hr transdermal film, extended release See Instructions, 1 patch Topically apply a new patch weekly for 3 weeks, remove for 1 week, then repeat cycle, # 9 each, 5 Refills, Maintenance, 08/31/19 15:18:00 EST, [facility] #[id number], 1patch Topically; apply a new patch weekly for 3 we... Start Date: 08/31/19 Status: Ordered Problem List Condition Effective Dates Status Health Status Inform ant Dysmenorrhea in adolescent(Confirmed) Active Bilateral fibrocystic breast disease(Confirmed) Active Irritable bowel syndrome (IBS)(Confirmed) Active Mild scoliosis(Confirmed) Active Social History Social History Type Response Smoking Status Never (less than 100 in lifetime) entered on: 05/28/19 Sex
--- OUTSIDE RECORDS SUMMARY | 2023-01-01 22:01 | XMS_ITS | Continuity of Care Document ---
Author Name Unknown Organization [facility] Address [address], [address] [place] [address]- Care Team Providers Care Poultry Tender Name Role Phone Branch Rosa PEÑA Primary Care Physician Encounter [facility] Date(s): 08/22/20 - 09/24/20 [facility] [employer] [facility] [address] [place], [place] [address] Attending Physician: Not on Staff, Attending MD Referring Physician: Not on Staff, Referring MD Allergies, Adverse Reactions, Alerts Substance Reaction Severity Status Other Food Allergy 1 vomiting Active 1Candy [place] Immunizations Given and Recorded Vaccine Date Status [...] Vaccine (old term) 01 Given 1Admin Note: [facility] [id number] 2Admin Note: VIS dated 05/24/11 given 3Admin [...] 0 Refills, Maintenance, 02/18/20 17:57:00 EDT, Ointment, [facility] #[id number], 1 application Topically 3 times a day,x7 days, 152.5, cm, 08/31/19 15:09:00 EST, Height, 49.6, kg, 06/29/19 10:29:0... Start Date: 02/18/20 Stop Date: 02/25/20 Status: Ordered hydrocortisone topical 25 mg suppository 1 supp = 25 mg, Rectally, 2 times a day, # 28 supp, 1 Refills, Maintenance, 08/10/20 15:14:00 EST, Suppository, [facility] #[id number], Partial fill upon patient request if the prescription is for a schedule II opioid drug., 152.5, cm, 07/14/20 1... Start Date: 08/10/20 Stop Date: 09/07/20 Status: Ordered ibuprofen 400 mg oral tablet 400 mg, 1, tablet, By Mouth, Every 6 hours, PRN, # 30 tablet, Refills 2, Tot. Refills 2, Maintenance, as needed for menstrual pain, 06/29/19 10:54:35 EST, Route to Pharmacy Electronically, [id number], [facility] #[id number] Start Date: 06/29/19 Status: Ordered Xulane 150 mcg-35 mcg/24 hr transdermal film, extended release See Instructions, 1 patch Topically apply a new patch weekly for 3 weeks, remove for 1 week, then repeat cycle, # 9 each, 5 Refills, Maintenance, 08/31/19 15:18:00 EST, [facility] #[id number], 1patch Topically; apply a new patch weekly for 3 we... Start Date: 08/31/19 Status: Ordered Problem List Condition Effective Dates Status Health Status Inform ant Dysmenorrhea in adolescent(Confirmed) Active Bilateral fibrocystic breast disease(Confirmed) Active Irritable bowel syndrome (IBS)(Confirmed) Active Mild scoliosis(Confirmed) Active Vital Signs Most recent to oldest [Reference Range]: 1 Height 152.5 cm (08/25/20 1:14 PM) Weight 51.8 kg (08/25/20 1:14 PM) Body Mass Index [18.5-24.99] 22.27 (08/25/20 1:14 PM) Blood Pressure [90-138/55-84 mm Hg] 102/ 58mm Hg (08/25/20 1:14 PM) Blood pressure sites Arm, right (08/25/20 1:14 PM) Weight Obtained Via Standing scale (08/25/20 1:14 PM) Social History Social History Type Response Smoking Status Never (less than 100 in lifetime) entered on: 05/28/19 Sex
--- OUTSIDE RECORDS SUMMARY | 2023-01-01 22:01 | XMS_ITS | Continuity of Care Document ---
Author Name Unknown Organization [facility] Address [address], [address] [place] [address]- Care Team Providers Care Vessel Builder Name Role Phone Branch Rosa PEÑA Primary Care Physician Encounter [facility] Date(s): 08/25/20 - 09/24/20 [facility] [employer] [facility] [address] [place], [place] [address] Attending Physician: Vanesa Oquendo Admitting Physician: Vanesa Oquendo Referring Physician: AdmtrVanesa Allergies, Adverse Reactions, Alerts Substance Reaction Severity Status Other Food Allergy 1 vomiting Active 1Candy [place] Immunizations Given and Recorded Vaccine Date Status [...] Vaccine (old term) 01 Given 1Admin Note: [facility] [id number] 2Admin Note: VIS dated 05/24/11 given 3Admin [...] 0 Refills, Maintenance, 02/18/20 17:57:00 EDT, Ointment, [facility] #[id number], 1 application Topically 3 times a day,x7 days, 152.5, cm, 08/31/19 15:09:00 EST, Height, 49.6, kg, 06/29/19 10:29:0... Start Date: 02/18/20 Stop Date: 02/25/20 Status: Ordered hydrocortisone topical 25 mg suppository 1 supp = 25 mg, Rectally, 2 times a day, # 28 supp, 1 Refills, Maintenance, 08/10/20 15:14:00 EST, Suppository, [facility] #[id number], Partial fill upon patient request if the prescription is for a schedule II opioid drug., 152.5, cm, 07/14/20 1... Start Date: 08/10/20 Stop Date: 09/07/20 Status: Ordered ibuprofen 400 mg oral tablet 400 mg, 1, tablet, By Mouth, Every 6 hours, PRN, # 30 tablet, Refills 2, Tot. Refills 2, Maintenance, as needed for menstrual pain, 06/29/19 10:54:35 EST, Route to Pharmacy Electronically, [id number], [facility] #[id number] Start Date: 06/29/19 Status: Ordered Xulane 150 mcg-35 mcg/24 hr transdermal film, extended release See Instructions, 1 patch Topically apply a new patch weekly for 3 weeks, remove for 1 week, then repeat cycle, # 9 each, 5 Refills, Maintenance, 08/31/19 15:18:00 EST, [facility] #[id number], 1patch Topically; apply a new patch weekly [...]
--- OUTSIDE RECORDS SUMMARY | 2023-01-01 22:01 | XMS_ITS | Continuity of Care Document ---
Author Name Unknown Organization [facility] Address [address] [place] [address]- Care Team Providers Care Plug Overwrap Machine Tender Name Role Phone Rosa Gonzalez MD Primary Care Physician Encounter [facility] Date(s): 12/28/21 - 01/28/22 [facility] [address] [place] [address]- Attending Physician: Rosa Gonzalez MD Admitting Physician: Rosa Gonzalez MD Allergies, Adverse Reactions, Alerts Substance Reaction Severity Status Other Food Allergy 1 vomiting Active 1Candy [place] Immunizations Given and Recorded Vaccine Date Status [...] Vaccine (old term) 01 Given 1Admin Note: [facility] [id number] 2Admin Note: VIS dated 05/24/11 given 3Admin Note: VIS dated 09/03/11 given 4Admin Note: VIS dated 10/22/2007 given 5Admin Note: VIS sheet dated 02/10/12 given 6Admin Note: vis given 08.10 7Admin Note: VIS 04/09/09 GIVEN 8Admin Note: VIS05/12/09 GIVEN 9Admin Note: POLIO(oral) 10Admin Note: POLIO(oral) 11Admin Note: POLIO(oral) 12Admin Note: POLIO(oral) Medications betamethasone-clotrimazole 0.05%-1% topical cream 1 application, Topically, 2 times a day, # 45 Gm, 0 Refills, Acute 04/30/22 8:23:00 EDT, 04/30/21 8:23:00 EDT, Cream, [facility] #[id number], Partial fill upon patient request if the prescription is for a schedule II opioid drug., 1 application T... Start Date: 04/30/21 Stop Date: 04/30/22 Status: Ordered famotidine 20 mg oral tablet 20 mg, 1, tablet, By Mouth, 2 times a day, # 60 tablet, Refills 2, Tot. Refills 2, Maintenance, 01/14/22 16:24:00 EDT, Route to Pharmacy Electronically, [facility] #[id number], Partial fill uponpatient request if the prescription is for a schedu... Start Date: 01/14/22 Status: Ordered Problem List Condition Effective Dates Status Health Status Inform ant Dysmenorrhea in adolescent(Confirmed) Active Bilateral fibrocystic breast disease(Confirmed) Active Irritable bowel syndrome (IBS)(Confirmed) Active General counseling and advic e on female contraception(Confirmed) Active Mild scoliosis(Confirmed) Active Pap smear not due until age 21(Confirmed) Active Vaginal pain(Confirmed) Active Social History Social History Type Response Smoking Status Never (less than 100 in lifetime) entered on: 05/28/19 Sex
--- OUTSIDE RECORDS SUMMARY | 2023-01-01 22:01 | XMS_ITS | Continuity of Care Document ---
Author Name Unknown Organization [facility] Address [address] [place] [address]- Care Team Providers Care Project Buyer Name Role Phone Rosa Gonzalez MD Primary Care Physician Encounter [facility] Date(s): 06/03/20 - 06/10/20 [facility] [address] [place] [address]- [facility] Encounter Diagnosis Close exposure to COVID-19 virus(Discharge Diagnosis) - 06/03/20 Attending Physician: Pepito Salvador MD Referring Physician: Rosa Gonzalez MD Allergies, Adverse Reactions, Alerts Substance Reaction Severity Status Other Food Allergy 1 vomiting Active 1Candy [place] Immunizations Given and Recorded Vaccine Date Status [...] Vaccine (old term) 01 Given 1Admin Note: [facility] [id number] 2Admin Note: VIS dated 05/24/11 given 3Admin Note: VIS dated 09/03/11 given 4Admin Note: VIS dated 10/22/2007 given 5Admin Note: VIS sheet dated 02/10/12 given 6Admin Note: vis given 08.10 7Admin Note: VIS 04/09/09 GIVEN 8Admin Note: VIS05/12/09 GIVEN 9Admin Note: POLIO(oral) 10Admin Note: POLIO(oral) 11Admin Note: POLIO(oral) 12Admin Note: POLIO(oral) Medications Diflucan 150 mg oral tablet 1 tablet = 150 mg, By Mouth, Once, # 1 tablet, 0 Refills, Soft Stop, 01/11/20 16:55:00 EDT, Tablet,[facility] #[id number], 152.5, cm, 08/31/19 15:09:00 EST, Height, 49.6, kg, 06/29/19 10:29:00 EST, Dry Weight Start Date: 01/11/20 Status: Ordered hydrocortisone 2.5% topical ointment 1 application, Topically, 3 times a day, # 20 Gm, 0 Refills, Maintenance, 02/18/20 17:57:00 EDT, Ointment, [facility] #[id number], 1 application Topically 3 times a day,x7 days, 152.5, cm, 08/31/19 15:09:00 EST, Height, 49.6, kg, 06/29/19 10:29:0... Start Date: 02/18/20 Stop Date: 02/25/20 Status: Ordered ibuprofen 400 mg oral tablet 400 mg, 1, tablet, By Mouth, Every 6 hours, PRN, # 30 tablet, Refills 2, Tot. Refills 2, Maintenance, as needed for menstrual pain, 06/29/19 10:54:35 EST, Route to Pharmacy Electronically, [id number], [facility] #[id number] Start Date: 06/29/19 Status: Ordered metroNIDAZOLE 1.3% vaginal gel with applicator See Instructions, Vaginally at hs x 5 days, # 5 Gm, 0 Refills, Maintenance, 05/16/20 17:30:00 EDT, [facility] #[id number], Vaginally at hs x 5 days, 152.5, cm, 05/16/20 14:37:00 EDT, Height, 49.6, kg, 06/29/19 10:29:00 EST, Dry Weight Start Date: 05/16/20 Status: Ordered Xulane 150 mcg-35 mcg/24 hr transdermal film, extended release See Instructions, 1 patch Topically apply a new patch weekly for 3 weeks, remove for 1 week, then repeat cycle, # 9 each, 5 Refills, Maintenance, 08/31/19 15:18:00 EST, [facility] #[id number], 1patch Topically; apply a new patch weekly for 3 we... Start Date: 08/31/19 Status: Ordered Problem List Condition Effective Dates Status Health Status Inform ant Dysmenorrhea in adolescent(Confirmed) Active Bilateral fibrocystic breast disease(Confirmed) Active Irritable bowel syndrome (IBS)(Confirmed) Active Mild scoliosis(Confirmed) Active Diagnosis Diagnosis Type Effective Dates Health Status Cl inical Service Informant Close exposure to COVID-19 virus Discharge Diagnosis 06/03/20 Social History Social History Type Response Smoking Status Never (less than 100 in lifetime) entered on: 05/28/19 Sex
--- OUTSIDE RECORDS SUMMARY | 2023-01-01 22:01 | XMS_ITS | Continuity of Care Document ---
Author Name Unknown Organization [facility] Address [address] [place] [phone]- Care Team Providers Care Student Activities Director Name Role Phone Branch Rosa PEÑA Primary Care Phys[facility] - 11/08/21 [facility] [address] [place] [address]- Allergies, Adverse Reactions, Alerts Substance Reaction Severity Status Other Food Allergy 1 vomiting Active 1Candy [place] Immunizations Given and Recorded Vaccine Date Status [...] Vaccine (old term) 01 Given 1Admin Note: [facility] [place] [id number] 2Admin Note: VIS dated 05/24/11 given 3Admin Note: VIS dated 09/03/11 given 4Admin Note: VIS dated 10/22/2007 given 5Admin Note: VIS sheet dated 02/10/12 given 6Admin Note: vis given 0810 7Admin Note: VIS 04/09/09 GIVEN 8Admin Note: VIS05/12/09 GIVEN 9Admin Note: POLIO(oral) 10Admin Note: POLIO(oral) 11Admin Note: POLIO(oral) 12Admin Note: POLIO(oral) Medications betamethasone-clotrimazole 0.05%-1% topical cream 1 application, Topically, 2 times a day, # 45 Gm, 0 Refills, Acute 04/30/22 8:23:00 EDT, 04/30/21 8:23:00 EDT, Cream, [facility] #[id number], Partial fill upon patient request if the prescription is for a schedule II opioid drug., 1 application T... Start Date: 04/30/21 Stop Date: 04/30/22 Status: Ordered hydrocortisone 2.5% topical ointment 1 application, Topically, 3 times a day, # 20 Gm, 0 Refills, Maintenance, 02/18/20 17:57:00 EDT, Ointment, [facility] #[id number], 1 application Topically 3 times a day,x7 days, 152.5, cm, 08/31/19 15:09:00 EST, Height, 49.6, kg, 06/29/19 10:29:0... Start Date: 02/18/20 Stop Date: 02/25/20 Status: Ordered hydrocortisone topical 25 mg suppository 1 supp = 25 mg, Rectally, 2 times a day, # 28 supp, 1 Refills, Maintenance, 08/10/20 15:14:00 EST, Suppository, [facility] #[id number], Partial fill upon patient request if the prescription is for a schedule II opioid drug., 152.5, cm, 07/14/20 1... Start Date: 08/10/20 Stop Date: 09/07/20 Status: Ordered ibuprofen 400 mg oral tablet 400 mg, 1, tablet, By Mouth, Every 6 hours, PRN, # 30 tablet, Refills 2, Tot. Refills 2, Maintenance, as needed for menstrual pain, 06/29/19 10:54:35 EST, Route to Pharmacy Electronically, [id number], [facility] #[id number] Start Date: 06/29/19 Status: Ordered omeprazole 20 mg oral enteric coated capsule 1 capsule = 20 mg, By Mouth, Daily, # 30 capsule, 2 Refills, Maintenance, 10/26/21 17:58:00 EDT, ECCapsule, [facility] #[id number], Partial fill upon patient request if the prescription is for a schedule II opioid drug., 152.4, cm, 10/26/21 16:0... Start Date: 10/26/21 Status: Ordered Problem List Condition Effective Dates Status Health Status Inform ant Dysmenorrhea in adolescent(Confirmed) Active Bilateral fibrocystic breast disease(Confirmed) Active Irritable bowel syndrome (IBS)(Confirmed) Active General counseling and advic e on female contraception(Confirmed) Active Mild scoliosis(Confirmed) Active Vaginal pain(Confirmed) Active Social History Social History Type Response Smoking Status Never (less than 100 in lifetime) entered on: 05/28/19 Sex
--- OUTSIDE RECORDS SUMMARY | 2023-01-01 22:01 | XMS_ITS | Continuity of Care Document ---
Author Name Unknown Organization [facility] Address [address] [place] [address]- Care Team Providers Care Steel Wheel Engraver Name Role Phone Branch Rosa PEÑA Primary Care Physician [facility] 03[facility]21 - 04/25/21 [facility] [address] [place] [address]- Attending Physician: Not on Staff, Attending MD Referring Physician: Susie HOME MISSION WORKER, Lorena Guan Allergies, Adverse Reactions, Alerts Substance Reaction Severity Status Other Food Allergy 1 vomiting Active 1Candy [place] Immunizations Given and Recorded Vaccine Date Status [...] Vaccine (old term) 01 Given 1Admin Note: [facility] [id number] 2Admin Note: VIS dated 05/24/11 given 3Admin Note: VIS dated 09/03/11 given 4Admin Note: VIS dated 10/22/2007 given 5Admin Note: VIS sheet dated 02/10/12 given 6Admin Note: vis given 08.10 7Admin Note: VIS 04/09/09 GIVEN 8Admin Note: VIS05/12/09 GIVEN 9Admin Note: POLIO(oral) 10Admin Note: POLIO(oral) 11Admin Note: POLIO(oral) 12Admin Note: POLIO(oral) Medications Aviane 100 mcg-20 mcg oral tablet 1 tablet, By Mouth, Daily, # 84 tablet, 3 Refills, Maintenance, 04/18/21 16:50:00 EDT, Tablet, [facility] #[id number], Partial fill upon patient request if the prescription is for a schedule II opioid drug., 1 tablet By Mouth Daily, 153, cm, 0... Start Date: 04/18/21 Status: Ordered Diflucan 150 mg oral tablet 1 tablet = 150 mg, By Mouth, Once, # 1 tablet, 0 Refills, Soft Stop, 03/22/21 9:44:00 EDT, Tablet, [facility] #[id number], Partial fill upon patient request if the prescription is for a scheduleII opioid drug., 152.5, cm, 01/30/21 14:10:00 EDT,... Start Date: 03/22/21 Status: Ordered Diflucan 150 mg oral tablet 1 tablet = 150 mg, By Mouth, Once, # 1 tablet, 0 Refills, Soft Stop, 03/20/21 13:51:00 EDT, Tablet,[facility] #[id number], Partial fill upon patient request if the prescription is for a schedule II opioid drug., 152.5, cm, 01/30/21 14:10:00 EDT,... Start Date: 03/20/21 Status: Ordered hydrocortisone 2.5% topical ointment 1 application, Topically, 3 times a day, # 20 Gm, 0 Refills, Maintenance, 02/18/20 17:57:00 EDT, Ointment, [facility] #[id number], 1 application Topically 3 times a day,x7 days, 152.5, cm, 08/31/19 15:09:00 EST, Height, 49.6, kg, 06/29/19 10:29:0... Start Date: 02/18/20 Stop Date: 02/25/20 Status: Ordered hydrocortisone topical 25 mg suppository 1 supp = 25 mg, Rectally, 2 times a day, # 28 supp, 1 Refills, Maintenance, 08/10/20 15:14:00 EST, Suppository, [facility] #[id number], Partial fill upon patient request if the prescription is for a schedule II opioid drug., 152.5, cm, 07/14/20 1... Start Date: 08/10/20 Stop Date: 09/07/20 Status: Ordered ibuprofen 400 mg oral tablet 400 mg, 1, tablet, By Mouth, Every 6 hours, PRN, # 30 tablet, Refills 2, Tot. Refills 2, Maintenance, as needed for menstrual pain, 06/29/19 10:54:35 EST, Route to Pharmacy Electronically, [id number], [id number] Start Date: 06/29/19 Status: Ordered Problem List Condition Effective Dates [...]
--- OUTSIDE RECORDS SUMMARY | 2023-01-01 22:01 | XMS_ITS | Continuity of Care Document ---
Author Name Unknown Organization [facility] Address [address] [place] [address]- Care Team Providers Care Professor Of German Name Role Phone Branch Rosa PEÑA Primary Care Physician [facility] - 07/23/20 [facility] [address] [place] [address]- Attending Physician: Vanesa Oquendo Admitting Physician: Vanesa Oquendo Referring Physician: AdmVanesa remy Allergies, Adverse Reactions, Alerts Substance Reaction Severity Status Other Food Allergy 1 vomiting Active 1Candy [place] Immunizations Given and Recorded Vaccine Date Status [...] Vaccine (old term) 01 Given 1Admin Note: [facility] [id number] 2Admin Note: VIS dated 05/24/11 given 3Admin [...] 02/18/20 17:57:00 EDT, Ointment, [facility] #[id number], 1 application Topically 3 times a day,x7 days, 152.5, cm, 08/31/19 15:09:00 EST, Height, 49.6, kg, 06/29/19 10:29:0... Start Date: 02/18/20 Stop Date: 02/25/20 Status: Ordered ibuprofen 400 mg oral tablet 400 mg, 1, tablet, By Mouth, Every 6 hours, PRN, # 30 tablet, Refills 2, Tot. Refills 2, Maintenance, as needed for menstrual pain, 06/29/19 10:54:35 EST, Route to Pharmacy Electronically, [id number], [facility] #[id number] Start Date: 06/29/19 Status: Ordered Xulane 150 mcg-35 mcg/24 hr transdermal film, extended release See Instructions, 1 patch Topically apply a new patch weekly for 3 weeks, remove for 1 week, then repeat cycle, # 9 each, 5 Refills, Maintenance, 08/31/19 15:18:00 EST, [facility] #[id number], 1patch Topically; apply a new patch weekly [...]
--- OUTSIDE RECORDS SUMMARY | 2023-01-01 22:01 | XMS_ITS | Continuity of Care Document ---
Author Name Unknown Organization [facility] Address [address] [place] [address]- Care Team Providers Care Vocational Nursing Instructor Name Role Phone Branch Rosa PEÑA Primary Care Physician [facility] 10[facility] - 11/25/21 [facility] [address] [place] [address]- Attending Physician: Vanesa Oquendo Admitting Physician: Vanesa Oquendo Referring Physician: AdmtrVanesa Allergies, Adverse Reactions, Alerts Substance Reaction Severity Status Other Food Allergy 1 vomiting Active 1Candy [place] Immunizations Given and Recorded Vaccine Date Status [...] Vaccine (old term) 01 Given 1Admin Note: [facility] [id number] 2Admin Note: VIS dated 05/24/11 given 3Admin [...] 04/30/22 8:23:00 EDT, 04/30/21 8:23:00 EDT, Cream, [facility] #[id number], Partial fill upon patient request if the prescription is for a schedule II opioid drug., 1 application T... Start Date: 04/30/21 Stop Date: 04/30/22 Status: Ordered hydrocortisone 2.5% topical ointment 1 application, Topically, 3 times a day, # 20 Gm, 0 Refills, Maintenance, 02/18/20 17:57:00 EDT, Ointment, [facility] #[id number], 1 application Topically 3 times a day,x7 days, 152.5, cm, 08/31/19 15:09:00 EST, Height, 49.6, kg, 06/29/19 10:29:0... Start Date: 02/18/20 Stop Date: 02/25/20 Status: Ordered hydrocortisone topical 25 mg suppository 1 supp = 25 mg, Rectally, 2 times a day, # 28 supp, 1 Refills, Maintenance, 08/10/20 15:14:00 EST, Suppository, [facility] #[id number], Partial fill upon patient request if the prescription is for a schedule II opioid drug., 152.5, cm, 07/14/20 1... Start Date: 08/10/20 Stop Date: 09/07/20 Status: Ordered ibuprofen 400 mg oral tablet 400 mg, 1, tablet, By Mouth, Every 6 hours, PRN, # 30 tablet, Refills 2, Tot. Refills 2, Maintenance, as needed for menstrual pain, 06/29/19 10:54:35 EST, Route to Pharmacy Electronically, [id number], [facility] #[id number] Start Date: 06/29/19 Status: Ordered omeprazole 20 mg oral enteric coated capsule 1 capsule = 20 mg, By Mouth, Daily, # 30 capsule, 2 Refills, Maintenance, 10/26/21 17:58:00 EDT, ECCapsule, [facility] #[id number], Partial fill upon patient request if the [...]
--- OUTSIDE RECORDS SUMMARY | 2023-01-01 22:01 | XMS_ITS | Continuity of Care Document ---
Author Name Unknown Organization [facility] Address [address], [address] [address]- Care Team Providers Care Openstack Developer Name Role Phone Branch Rosa PEÑA Primary Care Physician [facility] 12[facility]21[facility]21 - 01/20/22 [facility] [address] [address] Attending Physician: Vanesa Oquendo Admitting Physician: Vanesa Oquendo Referring Physician: Vanesa Oquendo Allergies, Adverse Reactions, Alerts Substance Reaction Severity Status Other Food Allergy 1 vomiting Active 1Candy [place] Immunizations Given and Recorded Vaccine Date Status [...] Vaccine (old term) 01 Given 1Admin Note: [facility] [place] [id number] 2Admin Note: VIS dated 05/24/11 given 3Admin [...] 04/30/22 8:23:00 EDT, 04/30/21 8:23:00 EDT, Cream, [facility] #[id number], Partial fill upon patient request if the prescription is for a schedule II opioid drug., 1 application T... Start Date: 04/30/21 Stop Date: 04/30/22 Status: Ordered famotidine 20 mg oral tablet 20 mg, 1, tablet, By Mouth, 2 times a day, # 60 tablet, Refills 2, Tot. Refills 2, Maintenance, 01/14/22 16:24:00 EDT, Route to Pharmacy Electronically, [facility] #[id number], Partial fill uponpatient request if the prescription [...]
--- OUTSIDE RECORDS SUMMARY | 2023-01-01 22:01 | XMS_ITS | Continuity of Care Document ---
Author Name Unknown Organization [facility] [employer] Address [address], [address] [place] [address]- Care Team Providers Care Microsoft Crm Developer Name Role Phone Branch Rosa PEÑA Primary Care Physician [facility]): 08/30/20 - 09/29/20 [facility] [address], [address] [place] [address]- Allergies, Adverse Reactions, Alerts Substance Reaction Severity Status Other Food Allergy 1 vomiting Active 1Candy [place] Immunizations Given and Recorded Vaccine Date Status [...] Vaccine (old term) 01 Given 1Admin Note: [facility] [id number] 2Admin Note: VIS dated 05/24/11 given 3Admin [...] Refills, Maintenance, 02/18/20 17:57:00 EDT, Ointment, [facility] #[id number], 1 application Topically 3 times a day,x7 days, 152.5, cm, 08/31/19 15:09:00 EST, Height, 49.6, kg, 06/29/19 10:29:0... Start Date: 02/18/20 Stop Date: 02/25/20 Status: Ordered hydrocortisone topical 25 mg suppository 1 supp = 25 mg, Rectally, 2 times a day, # 28 supp, 1 Refills, Maintenance, 08/10/20 15:14:00 EST, Suppository, [facility] #[id number], Partial fill upon patient request if the prescription is for a schedule II opioid drug., 152.5, cm, 07/14/20 1... Start Date: 08/10/20 Stop Date: 09/07/20 Status: Ordered ibuprofen 400 mg oral tablet 400 mg, 1, tablet, By Mouth, Every 6 hours, PRN, # 30 tablet, Refills 2, Tot. Refills 2, Maintenance, as needed for menstrual pain, 06/29/19 10:54:35 EST, Route to Pharmacy Electronically, [id number], [facility] #[id number] Start Date: 06/29/19 Status: Ordered Xulane 150 mcg-35 mcg/24 hr transdermal film, extended release See Instructions, 1 patch Topically apply a new patch weekly for 3 weeks, remove for 1 week, then repeat cycle, # 9 each, 5 Refills, Maintenance, 08/31/19 15:18:00 EST, [facility] #[id number], 1patch Topically; apply a new patch weekly [...]
--- OUTSIDE RECORDS SUMMARY | 2023-01-01 22:01 | XMS_ITS | Continuity of Care Document ---
Author Name Unknown Organization [facility] Address [address], [address] [place] [address]- Care Team Providers Care Gauge Operator Name Role Phone Rosa Gonzalez MD Primary Care Physician [facility]): 03/07/21 - 05/11/21 [facility] [address]th [place] [address]- Attending Physician: Not on Staff, Attending MD Referring Physician: Rosa Gonzalez MD Allergies, Adverse Reactions, Alerts Substance Reaction Severity Status Other Food Allergy 1 vomiting Active 1Candy [place] Immunizations Given and Recorded Vaccine Date Status [...] Vaccine (old term) 01 Given 1Admin Note: [facility] [id number] 2Admin Note: VIS dated 05/24/11 given 3Admin [...] 3 Refills, Maintenance, 04/18/21 16:50:00 EDT, Tablet, [facility] #[id number], Partial fill upon patient request if the prescription is for a schedule II opioid drug., 1 tablet By Mouth Daily, 153, cm, 090... Start Date: 04/18/21 Status: Ordered betamethasone-clotrimazole 0.05%-1% topical cream 1 application, Topically, 2 times a day, # 45 Gm, 0 Refills, Acute 04/30/22 8:23:00 EDT, 04/30/21 8:23:00 EDT, Cream, [facility] #[id number], Partial fill upon patient request if the prescription is for a schedule II opioid drug., 1 application T... Start Date: 04/30/21 Stop Date: 04/30/22 Status: Ordered Diflucan 150 mg oral tablet 1 tablet = 150 mg, By Mouth, Once, # 1 tablet, 0 Refills, Soft Stop, 03/22/21 9:44:00 EDT, Tablet, [facility] #[id number], Partial fill upon patient request if the prescription is for a scheduleII opioid drug., 152.5, cm, 01/30/21 14:10:00 EDT,... Start Date: 03/22/21 Status: Ordered Diflucan 150 mg oral tablet 1 tablet = 150 mg, By Mouth, Once, # 1 tablet, 0 Refills, Soft Stop, 03/20/21 13:51:00 EDT, Tablet,[facility] #[id number], Partial fill upon patient request if the prescription is for a schedule II opioid drug., 152.5, cm, 01/30/21 14:10:00 EDT,... Start Date: 03/20/21 Status: Ordered hydrocortisone 2.5% topical ointment 1 application, Topically, 3 times a day, # 20 Gm, 0 Refills, Maintenance, 02/18/20 17:57:00 EDT, Ointment, [facility] #[id number], 1 application Topically 3 times a day,x7 days, 152.5, cm, 08/31/19 15:09:00 EST, Height, 49.6, kg, 06/29/19 10:29:0... Start Date: 02/18/20 Stop Date: 02/25/20 Status: Ordered hydrocortisone topical 25 mg suppository 1 supp = 25 mg, Rectally, 2 times a day, # 28 supp, 1 Refills, Maintenance, 08/10/20 15:14:00 EST, Suppository, [facility] #[id number], Partial fill upon patient request if the prescription is for a schedule II opioid drug., 152.5, cm, 07/14/20 1... Start Date: 08/10/20 Stop Date: 09/07/20 Status: Ordered ibuprofen 400 mg oral tablet 400 mg, 1, tablet, By Mouth, Every 6 hours, PRN, # 30 tablet, Refills 2, Tot. Refills 2, Maintenance, as needed for menstrual pain, 06/29/19 10:54:35 EST, Route to Pharmacy Electronically, [id number], [facility] #[id number] Start Date: 06/29/19 Status: Ordered Problem List [...]
--- OUTSIDE RECORDS SUMMARY | 2023-01-01 22:01 | XMS_ITS | Continuity of Care Document ---
Author Name Unknown Organization [facility] Address [address] [place] [address]- Care Team Providers Care Olive Pitter Name Role Phone Branch Rosa PEÑA Primary Care Physician [facility]): 02[facility]22 - 03/08/22 [facility] [address] [place] [address]- Attending Physician: Vanesa Oquendo Admitting Physician: Vanesa Oquendo Referring Physician: AdmVanesa remy Allergies, Adverse Reactions, Alerts Substance Reaction Severity Status Other Food Allergy 1 vomiting Active 1Candy [place] Immunizations Given and Recorded Vaccine Date Status [...] Vaccine (old term) 01 Given 1Admin Note: [facility] [id number] 2Admin Note: VIS dated 05/24/11 given 3Admin [...] 04/30/22 8:23:00 EDT, 04/30/21 8:23:00 EDT, Cream, [facility] #[id number], Partial fill upon patient request if the prescription is for a schedule II opioid drug., 1 application T... Start Date: 04/30/21 Stop Date: 04/30/22 Status: Ordered famotidine 20 mg oral tablet 20 mg, 1, tablet, By Mouth, 2 times a day, # 60 tablet, Refills 2, Tot. Refills 2, Maintenance, 01/14/22 16:24:00 EDT, Route to Pharmacy Electronically, [facility] #[id number], Partial fill uponpatient request if the prescription [...]
--- OUTSIDE RECORDS SUMMARY | 2023-01-01 22:01 | XMS_ITS | Continuity of Care Document ---
Author Name Unknown Organization [facility] Address [address] [place] [address]- Care Team Providers Care Garment Folder Name Role Phone Branch Rosa PEÑA Primary Care Physician [facility]): 07/14/20 - 08/13/20 [facility] [address] [place] [address]- Attending Physician: Vanesa Oquendo Admitting Physician: Vanesa Oquendo Referring Physician: AdmtrVanesa Allergies, Adverse Reactions, Alerts Substance Reaction Severity Status Other Food Allergy 1 vomiting Active 1Candy [place] Immunizations Given and Recorded Vaccine Date Status [...] (old term) 01 Given 1Admin Note: [facility] [id number] 2Admin Note: VIS dated 05/24/11 given 3Admin [...] 02/18/20 17:57:00 EDT, Ointment, [facility] #[id number], 1 application Topically 3 times a day,x7 days, 152.5, cm, 08/31/19 15:09:00 EST, Height, 49.6, kg, 06/29/19 10:29:0... Start Date: 02/18/20 Stop Date: 02/25/20 Status: Ordered hydrocortisone topical 25 mg suppository 1 supp = 25 mg, Rectally, 2 times a day, # 28 supp, 1 Refills, Maintenance, 08/10/20 15:14:00 EST, Suppository, [facility] #[id number], Partial fill upon patient request if the prescription is for a schedule II opioid drug., 152.5, cm, 07/14/20 1... Start Date: 08/10/20 Stop Date: 09/07/20 Status: Ordered ibuprofen 400 mg oral tablet 400 mg, 1, tablet, By Mouth, Every 6 hours, PRN, # 30 tablet, Refills 2, Tot. Refills 2, Maintenance, as needed for menstrual pain, 06/29/19 10:54:35 EST, Route to Pharmacy Electronically, [id number], [facility] #[id number] Start Date: 06/29/19 Status: Ordered Xulane 150 mcg-35 mcg/24 hr transdermal film, extended release See Instructions, 1 patch Topically apply a new patch weekly for 3 weeks, remove for 1 week, then repeat cycle, # 9 each, 5 Refills, Maintenance, 08/31/19 15:18:00 EST, [facility] #[id number], 1patch Topically; apply a new patch weekly [...]
--- OUTSIDE RECORDS SUMMARY | 2023-01-01 22:01 | XMS_ITS | Continuity of Care Document ---
Author Name Unknown Organization [facility] Address [address] [place] [address]- Care Team Providers Care Photographic Supervisor Name Role Phone Branch Rosa PEÑA Primary Care Physician [facility]): 12[facility]14/21 - 01/16/22 [facility] [address] [place] [address]- Attending Physician: Caden Moss MD Admitting Physician: Caden Moss MD Referring Physician: Caden Moss MD Allergies, Adverse Reactions, Alerts Substance Reaction Severity Status Other Food Allergy 1 vomiting Active 1Candy [place] Immunizations Given and Recorded Vaccine Date Status [...] 1Admin Note: [facility] [id number] 2Admin Note: VIS dated 05/24/11 given 3Admin [...] 04/30/22 8:23:00 EDT, 04/30/21 8:23:00 EDT, Cream, [facility] #[id number], Partial fill upon patient request if the prescription is for a schedule II opioid drug., 1 application T... Start Date: 04/30/21 Stop Date: 04/30/22 Status: Ordered famotidine 20 mg oral tablet 20 mg, 1, tablet, By Mouth, 2 times a day, # 60 tablet, Refills 2, Tot. Refills 2, Maintenance, 01/14/22 16:24:00 EDT, Route to Pharmacy Electronically, [facility] #[id number], Partial fill uponpatient request if the prescription [...]
--- OUTSIDE RECORDS SUMMARY | 2023-01-01 22:01 | XMS_ITS | Continuity of Care Document ---
Author Name Unknown Organization [facility] Address [address] [place] [address] [address] [place] [address]- Care Team Providers Care Material Controller Name Role Phone Branch Rosa PEÑA Primary Care Physician Encounter [facility] [place] Date(s): 08/10/20 - 08/17/20 [facility] [address] [place] [address]- Encounter Diagnosis Internal hemorrhoids(Discharge Diagnosis) - 08/10/20 Attending Physician: Elisa COTTO, Toyin Flood Referring Physician: Naman Herron DO Allergies, Adverse Reactions, Alerts Substance Reaction Severity Status Other Food Allergy 1 vomiting Active 1Candy [place] Immunizations Given and Recorded Vaccine Date Status [...] term) 01 Given 1Admin Note: [facility] [id number] 2Admin Note: VIS dated 05/24/11 given 3Admin [...] 0 Refills, Maintenance, 02/18/20 17:57:00 EDT, Ointment, [facility] #[id number], 1 application Topically 3 times a day,x7 days, 152.5, cm, 08/31/19 15:09:00 EST, Height, 49.6, kg, 06/29/19 10:29:0... Start Date: 02/18/20 Stop Date: 02/25/20 Status: Ordered hydrocortisone topical 25 mg suppository 1 supp = 25 mg, Rectally, 2 times a day, # 28 supp, 1 Refills, Maintenance, 08/10/20 15:14:00 EST, Suppository, [facility] #[id number], Partial fill upon patient request if the prescription is for a schedule II opioid drug., 152.5, cm, 07/14/20 1... Start Date: 08/10/20 Stop Date: 09/07/20 Status: Ordered ibuprofen 400 mg oral tablet 400 mg, 1, tablet, By Mouth, Every 6 hours, PRN, # 30 tablet, Refills 2, Tot. Refills 2, Maintenance, as needed for menstrual pain, 06/29/19 10:54:35 EST, Route to Pharmacy Electronically, [id number], [facility] #[id number] Start Date: 06/29/19 Status: Ordered Xulane 150 mcg-35 mcg/24 hr transdermal film, extended release See Instructions, 1 patch Topically apply a new patch weekly for 3 weeks, remove for 1 week, then repeat cycle, # 9 each, 5 Refills, Maintenance, 08/31/19 15:18:00 EST, [facility] #[id number], 1patch Topically; apply a new patch weekly for 3 we... Start Date: 08/31/19 Status: Ordered Problem List Condition Effective Dates Status Health Status Inform ant Dysmenorrhea in adolescent(Confirmed) Active Bilateral fibrocystic breast disease(Confirmed) Active Irritable bowel syndrome (IBS)(Confirmed) Active Mild scoliosis(Confirmed) Active Diagnosis Diagnosis Type Effective Dates Health Status Clinical Service Informant Internal hemorrhoids Discharge Diagnosis 08/10/20 Social History Social History Type Response Smoking Status Never (less than 100 in lifetime) entered on: 05/28/19 Sex
--- OUTSIDE RECORDS SUMMARY | 2023-01-01 22:01 | XMS_ITS | Continuity of Care Document ---
Author Name Unknown Organization [facility] Address [address], [address] [place] [address]- Care Team Providers Care Transportation Escort Name Role Phone Branch Rosa PEÑA Primary Care Physician [facility] Date(s): 08/31/19 - 09/07/19 [facility] [employer] [address], [address] [place] [address]- Attending Physician: Ana Lal MD Allergies, Adverse Reactions, Alerts Substance Reaction Severity Status Other Food Allergy 1 vomiting Active 1Candy [place] Immunizations Given and Recorded Vaccine Date Status [...] (old term) 01 Given 1Admin Note: [facility] [id number] 2Admin Note: VIS dated 05/24/11 given 3Admin Note: VIS dated 09/03/11 given 4Admin Note: VIS dated 10/22/2007 given 5Admin Note: VIS sheet dated 02/10/12 given 6Admin Note: vis given 08.10 7Admin Note: VIS 04/09/09 GIVEN 8Admin Note: VIS05/12/09 GIVEN 9Admin Note: POLIO(oral) 10Admin Note: POLIO(oral) 11Admin Note: POLIO(oral) 12Admin Note: POLIO(oral) Medications ibuprofen 400 mg oral tablet 400 mg, 1, tablet, By Mouth, Every 6 hours, PRN, # 30 tablet, Refills 2, Tot. Refills 2, Maintenance, as needed for menstrual pain, 06/29/19 10:54:35 EST, Route to Pharmacy Electronically, [id number], [facility] #[id number] Start Date: 06/29/19 Status: Ordered Xulane 150 mcg-35 mcg/24 hr transdermal film, extended release See Instructions, 1 patch Topically apply a new patch weekly for 3 weeks, remove for 1 week, then repeat cycle, # 9 each, 5 Refills, Maintenance, 08/31/19 15:18:00 EST, [facility] #[id number], 1patch Topically; apply a new patch weekly for 3 we... Start Date: 08/31/19 Status: Ordered Problem List Condition Effective Dates Status Health Status Inform ant Dysmenorrhea in adolescent(Confirmed) Active Bilateral fibrocystic breast disease(Confirmed) Active Irritable bowel syndrome (IBS)(Confirmed) Active Mild scoliosis(Confirmed) Active Vital Signs Most recent to oldest [Reference Range]: 1 Height 152.5 cm (08/31/19 3:09 PM) Weight 48.5 kg (08/31/19 3:09 PM) Body Mass Index [18.5-24.99] 20.85 (08/31/19 3:09 PM) Blood Pressure [71-110/30-71 mm Hg] 107/ 54mm Hg (08/31/19 3:09 PM) Blood pressure sites Arm, left (08/31/19 3:09 PM) Weight Obtained Via Standing scale (08/31/19 3:09 PM) Social History Social History Type Response Smoking Status Never (less than 100 in lifetime) entered on: 05/28/19 Sex
--- OUTSIDE RECORDS SUMMARY | 2023-01-01 22:01 | XMS_ITS | Continuity of Care Document ---
Author Name Unknown Organization [facility] Address [address] [place] [address]- Care Team Providers Care Blindmaker Name Role Phone Branch Rosa PEÑA Primary Care Physician [facility] Date(s): 03/14/21 - 03/15/[address] [address]- Discharge Disposition: A-D/C Walkout Attending Physician: Not on Staff, Attending MD Admitting Physician: Not on Staff, Admitting MD Referring Physician: Not on Staff, Referring MD Allergies, Adverse Reactions, Alerts Substance Reaction Severity Status Other Food Allergy 1 vomiting Active 1Candy [place] Immunizations Given and Recorded Vaccine Date Status [...] Vaccine (old term) 01 Given 1Admin Note: [facility] [id number] 2Admin Note: VIS dated 05/24/11 given 3Admin [...] 02/18/20 17:57:00 EDT, Ointment, [facility] #[id number], 1 application Topically 3 times a day,x7 days, 152.5, cm, 08/31/19 15:09:00 EST, Height, 49.6, kg, 06/29/19 10:29:0... Start Date: 02/18/20 Stop Date: 02/25/20 Status: Ordered hydrocortisone topical 25 mg suppository 1 supp = 25 mg, Rectally, 2 times a day, # 28 supp, 1 Refills, Maintenance, 08/10/20 15:14:00 EST, Suppository, [facility] #[id number], Partial fill upon patient request if the prescription is for a schedule II opioid drug., 152.5, cm, 07/14/20 1... Start Date: 08/10/20 Stop Date: 09/07/20 Status: Ordered ibuprofen 400 mg oral tablet 400 mg, 1, tablet, By Mouth, Every 6 hours, PRN, # 30 tablet, Refills 2, Tot. Refills 2, Maintenance, as needed for menstrual pain, 06/29/19 10:54:35 EST, Route to Pharmacy Electronically, [id number], [facility] #[id number] Start Date: 06/29/19 Status: Ordered Xulane 150 mcg-35 mcg/24 hr transdermal film, extended release See Instructions, 1 patch Topically apply a new patch weekly for 3 weeks, remove for 1 week, then repeat cycle, # 9 each, 5 Refills, Maintenance, 08/31/19 15:18:00 EST, [facility] #[id number], 1patch Topically; apply a new patch weekly for 3 we... Start Date: 08/31/19 Status: Ordered Problem List Condition Effective Dates Status Health Status Inform ant Dysmenorrhea in adolescent(Confirmed) Active Bilateral fibrocystic breast disease(Confirmed) Active Irritable bowel syndrome (IBS)(Confirmed) Active Mild scoliosis(Confirmed) Active Vital Signs Most recent to oldest [Reference Range]: 1 Weight 51.5 kg (03/14/21 10:06 PM) Oxygen Saturation [94-100 %] 100 % (03/14/21 10:06 PM) Pulse Rate [55-90 bpm] 77 bpm (03/14/21 10:06 PM) Blood Pressure [90-138/55-84 mm Hg] 135/ 75mm Hg (03/14/21 10:06 PM) Respiratory Rate [16-30 br/min] 16 br/mi n (03/14/21 10:06 PM) Temperature [96.8-100.4 DegF] 98.5 DegF (03/14/21 10:06 PM) Mode of Delivery (Oxygen) Room air (03/14/21 10:06 PM) Blood pressure sites Arm, left (03/14/21 10:06 PM) Temperature Route Oral (03/14/21 10:06 PM) Dry Weight 51.5 kg (03/14/21 10:06 PM) Social History Social History Type Response Smoking Status Never (less than 100 in lifetime) entered on: 05/28/19 Sex
--- OUTSIDE RECORDS SUMMARY | 2023-01-01 22:02 | XMS_ITS | Continuity of Care Document ---
Author Name Unknown Organization [facility] Address [address] [place] [address] ve [address] [place] [address]- Care Team Providers Care Digital Program Manager Name Role Phone Branch Rosa PEÑA Primary Care Physician [facility] Date(s): 08/10/20 - 09/09/20 [facility] [address] [place] [address]- Attending Physician: Vanesa Oquendo Admitting Physician: Vanesa Oquendo Referring Physician: Vanesa Oquendo Allergies, Adverse Reactions, Alerts Substance Reaction Severity Status Other Food Allergy 1 vomiting Active 1Candy [place] Immunizations Given and Recorded Vaccine Date Status [...] Given 1Admin Note: [facility] [id number] 2Admin Note: VIS dated 05/24/11 given 3Admin [...] 0 Refills, Maintenance, 02/18/20 17:57:00 EDT, Ointment, [facility] #[id number], 1 application Topically 3 times a day,x7 days, 152.5, cm, 08/31/19 15:09:00 EST, Height, 49.6, kg, 06/29/19 10:29:0... Start Date: 02/18/20 Stop Date: 02/25/20 Status: Ordered hydrocortisone topical 25 mg suppository 1 supp = 25 mg, Rectally, 2 times a day, # 28 supp, 1 Refills, Maintenance, 08/10/20 15:14:00 EST, Suppository, [facility] #[id number], Partial fill upon patient request if the prescription is for a schedule II opioid drug., 152.5, cm, 07/14/20 1... Start Date: 08/10/20 Stop Date: 09/07/20 Status: Ordered ibuprofen 400 mg oral tablet 400 mg, 1, tablet, By Mouth, Every 6 hours, PRN, # 30 tablet, Refills 2, Tot. Refills 2, Maintenance, as needed for menstrual pain, 06/29/19 10:54:35 EST, Route to Pharmacy Electronically, [id number], [facility] #[id number] Start Date: 06/29/19 Status: Ordered Xulane 150 mcg-35 mcg/24 hr transdermal film, extended release See Instructions, 1 patch Topically apply a new patch weekly for 3 weeks, remove for 1 week, then repeat cycle, # 9 each, 5 Refills, Maintenance, 08/31/19 15:18:00 EST, [facility] #[id number], 1patch Topically; apply a new patch weekly [...]
--- OUTSIDE RECORDS SUMMARY | 2023-01-01 22:02 | XMS_ITS | Continuity of Care Document ---
Author Name Unknown Organization [facility] Address [address] [place] [address]- Care Team Providers Care Tree And Shrub Worker Name Role Phone Rosa Gonzalez MD Primary Care Physician [facility] Date[facility]s): 10/09/21 - 11/09/21 [facility] [address] [place] [address]- Attending Physician: Rosa Gonzalez MD Admitting Physician: Rosa Gonzalez MD Allergies, Adverse Reactions, Alerts Substance Reaction Severity Status Other Food Allergy 1 vomiting Active 1Candy [place] Immunizations Given and Recorded Vaccine Date Status [...] Given 1Admin Note: [facility] [id number] 2Admin Note: VIS dated 05/24/11 given 3Admin [...] 04/30/21 8:23:00 EDT, Cream, [facility] #[id number], Partial fill upon patient request if the prescription is for a schedule II opioid drug., 1 application T... Start Date: 04/30/21 Stop Date: 04/30/22 Status: Ordered hydrocortisone 2.5% topical ointment 1 application, Topically, 3 times a day, # 20 Gm, 0 Refills, Maintenance, 02/18/20 17:57:00 EDT, Ointment, [facility] #[id number], 1 application Topically 3 times a day,x7 days, 152.5, cm, 08/31/19 15:09:00 EST, Height, 49.6, kg, 06/29/19 10:29:0... Start Date: 02/18/20 Stop Date: 02/25/20 Status: Ordered hydrocortisone topical 25 mg suppository 1 supp = 25 mg, Rectally, 2 times a day, # 28 supp, 1 Refills, Maintenance, 08/10/20 15:14:00 EST, Suppository, [facility] #[id number], Partial fill upon patient request if the prescription is for a schedule II opioid drug., 152.5, cm, 07/14/20 1... Start Date: 08/10/20 Stop Date: 09/07/20 Status: Ordered ibuprofen 400 mg oral tablet 400 mg, 1, tablet, By Mouth, Every 6 hours, PRN, # 30 tablet, Refills 2, Tot. Refills 2, Maintenance, as needed for menstrual pain, 06/29/19 10:54:35 EST, Route to Pharmacy Electronically, [id number], [facility] #[id number] Start Date: 06/29/19 Status: Ordered omeprazole 20 mg oral enteric coated capsule 1 capsule = 20 mg, By Mouth, Daily, # 30 capsule, 2 Refills, Maintenance, 10/26/21 17:58:00 EDT, ECCapsule, [facility] #[id number], Partial fill upon patient request if the [...]
--- OUTSIDE RECORDS SUMMARY | 2023-01-01 22:02 | XMS_ITS | Continuity of Care Document ---
Author Name Unknown Organization [facility] Address [address] [place] [address]- Care Team Providers Care Greeter Name Role Phone Rosa Gonzalez MD Primary Care Physician [facility] Date(s): 02/05/22 - 03/08/22 [facility] [address] [place] [address]- Attending Physician: Rosa Gonzalez MD Admitting Physician: Rosa Gonzalez MD Allergies, Adverse Reactions, Alerts Substance Reaction Severity Status Other Food Allergy 1 vomiting Active 1Candy [place] Immunizations Given and Recorded Vaccine Date Status [...] Vaccine (old term) 01 Given 1Admin Note: [facility] [id number] 2Admin Note: VIS dated 05/24/11 given 3Admin [...] 04/30/22 8:23:00 EDT, 04/30/21 8:23:00 EDT, Cream, [facility] #[id number], Partial fill upon patient request if the prescription is for a schedule II opioid drug., 1 application T... Start Date: 04/30/21 Stop Date: 04/30/22 Status: Ordered famotidine 20 mg oral tablet 20 mg, 1, tablet, By Mouth, 2 times a day, # 60 tablet, Refills 2, Tot. Refills 2, Maintenance, 01/14/22 16:24:00 EDT, Route to Pharmacy Electronically, [facility] #[id number], Partial fill uponpatient request if the prescription [...]
--- OUTSIDE RECORDS SUMMARY | 2023-01-01 22:02 | XMS_ITS | Continuity of Care Document ---
Author Name Unknown Organization [facility] Address [address], [address] [place] [address]- Care Team Providers Care Chief Meteorologist Name Role Phone Branch Rosa PEÑA Primary Care Physician [facility] Date[facility]s): 05/16/20 - 05/23/20 [facility] [address] [place] [address]- [facility] Attending Physician: Ana Lal MD Allergies, Adverse Reactions, Alerts Substance Reaction Severity Status Other Food Allergy 1 vomiting Active 1Candy [place] Immunizations Given and Recorded Vaccine Date Status [...] Vaccine (old term) 01 Given 1Admin Note: [facility] [id number] 2Admin Note: VIS dated 05/24/11 given 3Admin [...] 0 Refills, Soft Stop, 01/11/20 16:55:00 EDT, Tablet,[facility] #[id number], 152.5, cm, 08/31/19 15:09:00 EST, Height, 49.6, kg, 06/29/19 10:29:00 EST, Dry Weight Start Date: 01/11/20 Status: Ordered hydrocortisone 2.5% topical ointment 1 application, Topically, 3 times a day, # 20 Gm, 0 Refills, Maintenance, 02/18/20 17:57:00 EDT, Ointment, [facility] #[id number], 1 application Topically 3 times a day,x7 days, 152.5, cm, 08/31/19 15:09:00 EST, Height, 49.6, kg, 06/29/19 10:29:0... Start Date: 02/18/20 Stop Date: 02/25/20 Status: Ordered ibuprofen 400 mg oral tablet 400 mg, 1, tablet, By Mouth, Every 6 hours, PRN, # 30 tablet, Refills 2, Tot. Refills 2, Maintenance, as needed for menstrual pain, 06/29/19 10:54:35 EST, Route to Pharmacy Electronically, [id number], [facility] #[id number] Start Date: 06/29/19 Status: Ordered metroNIDAZOLE 1.3% vaginal gel with applicator See Instructions, Vaginally at hs x 5 days, # 5 Gm, 0 Refills, Maintenance, 05/16/20 17:30:00 EDT, [facility] #[id number], Vaginally at hs x 5 days, 152.5, cm, 05/16/20 14:37:00 EDT, Height, 49.6, kg, 06/29/19 10:29:00 EST, Dry Weight Start Date: 05/16/20 Status: Ordered Xulane 150 mcg-35 mcg/24 hr transdermal film, extended release See Instructions, 1 patch Topically apply a new patch weekly for 3 weeks, remove for 1 week, then repeat cycle, # 9 each, 5 Refills, Maintenance, 08/31/19 15:18:00 EST, [facility] #[id number], 1patch Topically; apply a new patch weekly for 3 we... Start Date: 08/31/19 Status: Ordered Problem List Condition Effective Dates Status Health Status Inform ant Dysmenorrhea in adolescent(Confirmed) Active Bilateral fibrocystic breast disease(Confirmed) Active Irritable bowel syndrome (IBS)(Confirmed) Active Mild scoliosis(Confirmed) Active Vital Signs Most recent to oldest [Reference Range]: 1 Height 152.5 cm (05/16/20 2:37 PM) Weight 50.45 kg (05/16/20 2:37 PM) Body Mass Index [18.5-24.99] 21.69 (05/16/20 2:37 PM) Blood Pressure [90-138/55-84 mm Hg] 112/ 60mm Hg (05/16/20 2:37 PM) Blood pressure sites Arm, right (05/16/20 2:37 PM) Weight Obtained Via Standing scale (05/16/20 2:37 PM) Social History Social History Type Response Smoking Status Never (less than 100 in lifetime) entered on: 05/28/19 Sex
--- OUTSIDE RECORDS SUMMARY | 2023-01-01 22:02 | XMS_ITS | Continuity of Care Document ---
Author Name Unknown Organization [facility] [employer] Address [address], [address] [place] [address]- Care Team Providers Care Soft Metals Hand Engraver Name Role Phone Branch Rosa PEÑA Primary Care Physician [facility]): 09[facility]10/21 - 10/10/21 [facility] [address], [address] [place], [place] [address] Allergies, Adverse Reactions, Alerts Substance Reaction Severity Status Other Food Allergy 1 vomiting Active 1Candy [place] Immunizations Given and Recorded Vaccine Date Status [...] Vaccine (old term) 01 Given 1Admin Note: [facility][NOTE 3] [id number] 2Admin Note: VIS dated 05/24/11 given 3Admin [...] 04/30/22 8:23:00 EDT, 04/30/21 8:23:00 EDT, Cream, [facility] #[id number], Partial fill upon patient request if the prescription is for a schedule II opioid drug., 1 application T... Start Date: 04/30/21 Stop Date: 04/30/22 Status: Ordered hydrocortisone 2.5% topical ointment 1 application, Topically, 3 times a day, # 20 Gm, 0 Refills, Maintenance, 02/18/20 17:57:00 EDT, Ointment, [facility] #[id number], 1 application Topically 3 times a day,x7 days, 152.5, cm, 08/31/19 15:09:00 EST, Height, 49.6, kg, 06/29/19 10:29:0... Start Date: 02/18/20 Stop Date: 02/25/20 Status: Ordered hydrocortisone topical 25 mg suppository 1 supp = 25 mg, Rectally, 2 times a day, # 28 supp, 1 Refills, Maintenance, 08/10/20 15:14:00 EST, Suppository, [facility] #[id number], Partial fill upon patient request if the prescription is for a schedule II opioid drug., 152.5, cm, 07/14/20 1... Start Date: 08/10/20 Stop Date: 09/07/20 Status: Ordered ibuprofen 400 mg oral tablet 400 mg, 1, tablet, By Mouth, Every 6 hours, PRN, # 30 tablet, Refills 2, Tot. Refills 2, Maintenance, as needed for menstrual pain, 06/29/19 10:54:35 EST, Route to Pharmacy Electronically, [id number], [facility] #[id number] Start Date: 06/29/19 Status: Ordered omeprazole 20 mg oral enteric coated capsule 1 capsule = 20 mg, By Mouth, Daily, # 14 capsule, 1 Refills, Maintenance, 09/25/21 12:16:00 EST, ECCapsule, [facility] #[id number], Partial fill upon patient request if the prescription is for a schedule II opioid drug., 153.5, cm, 09/25/21 11:2... Start Date: 09/25/21 Stop Date: 10/23/21 Status: Ordered Problem List Condition Effective Dates [...]
--- OUTSIDE RECORDS SUMMARY | 2023-01-01 22:02 | XMS_ITS | Continuity of Care Document ---
Author Name Unknown Organization [facility] Address [address], [address] [place] [address]- Care Team Providers Care Mat Linker Name Role Phone Branch Rosa PEÑA Primary Care Physician [facility]): 09[facility]15[facility]19 - 01/13/20 [facility] [employer] [facility] [address], [address] [place] [address]- [facility] Attending Physician: Lukasz PEÑA, Ana Corona Allergies, Adverse Reactions, Alerts Substance Reaction Severity Status Other Food Allergy 1 vomiting Active 1Candy [place] Immunizations Given and Recorded Vaccine Date Status [...] term) 01 Given 1Admin Note: [facility] [id number] 2Admin Note: VIS dated 05/24/11 given 3Admin [...] 0 Refills, Soft Stop, 01/11/20 16:55:00 EDT, Tablet,[facility] #[id number], 152.5, cm, 08/31/19 15:09:00 EST, Height, 49.6, kg, 06/29/19 10:29:00 EST, Dry Weight Start Date: 01/11/20 Status: Ordered ibuprofen 400 mg oral tablet 400 mg, 1, tablet, By Mouth, Every 6 hours, PRN, # 30 tablet, Refills 2, Tot. Refills 2, Maintenance, as needed for menstrual pain, 06/29/19 10:54:35 EST, Route to Pharmacy Electronically, [id number], [facility] #[id number] Start Date: 06/29/19 Status: Ordered Xulane 150 mcg-35 mcg/24 hr transdermal film, extended release See Instructions, 1 patch Topically apply a new patch weekly for 3 weeks, remove for 1 week, then repeat cycle, # 9 each, 5 Refills, Maintenance, 08/31/19 15:18:00 EST, [facility] #[id number], 1patch Topically; apply a new patch weekly [...]
--- OUTSIDE RECORDS SUMMARY | 2023-01-01 22:02 | XMS_ITS | Continuity of Care Document ---
Author Name Unknown Organization [facility] Address [address], [address] [place] [address]- Care Team Providers Care Termite Treater Name Role Phone Branch Rosa PEÑA Primary Care Physician [facility] Date[facility]s): 10/25/21 - 11/24/21 [facility] [address], [address] [place] [address]- Allergies, Adverse Reactions, Alerts Substance Reaction Severity Status Other Food Allergy 1 vomiting Active 1Candy [place] Immunizations Given and Recorded Vaccine Date Status [...] Vaccine (old term) 01 Given 1Admin Note: [facility] [id number] 2Admin Note: VIS dated 05/24/11 given 3Admin [...] 04/30/22 8:23:00 EDT, 04/30/21 8:23:00 EDT, Cream, [facility] #[id number], Partial fill upon patient request if the prescription is for a schedule II opioid drug., 1 application T... Start Date: 04/30/21 Stop Date: 04/30/22 Status: Ordered hydrocortisone 2.5% topical ointment 1 application, Topically, 3 times a day, # 20 Gm, 0 Refills, Maintenance, 02/18/20 17:57:00 EDT, Ointment, [facility] #[id number], 1 application Topically 3 times a day,x7 days, 152.5, cm, 08/31/19 15:09:00 EST, Height, 49.6, kg, 06/29/19 10:29:0... Start Date: 02/18/20 Stop Date: 02/25/20 Status: Ordered hydrocortisone topical 25 mg suppository 1 supp = 25 mg, Rectally, 2 times a day, # 28 supp, 1 Refills, Maintenance, 08/10/20 15:14:00 EST, Suppository, [facility] #[id number], Partial fill upon patient request if the prescription is for a schedule II opioid drug., 152.5, cm, 07/14/20 1... Start Date: 08/10/20 Stop Date: 09/07/20 Status: Ordered ibuprofen 400 mg oral tablet 400 mg, 1, tablet, By Mouth, Every 6 hours, PRN, # 30 tablet, Refills 2, Tot. Refills 2, Maintenance, as needed for menstrual pain, 06/29/19 10:54:35 EST, Route to Pharmacy Electronically, [id number], [facility] #[id number] Start Date: 06/29/19 Status: Ordered omeprazole 20 mg oral enteric coated capsule 1 capsule = 20 mg, By Mouth, Daily, # 30 capsule, 2 Refills, Maintenance, 10/26/21 17:58:00 EDT, ECCapsule, [facility] #[id number], Partial fill upon patient request if the [...]
--- OUTSIDE RECORDS SUMMARY | 2023-01-01 22:02 | XMS_ITS | Continuity of Care Document ---
Author Name Unknown Organization [facility] [employer] Address [address], [address] [place] [address]- Care Team Providers Care Clinical Staff Rn Name Role Phone Rosa Gonzalez MD Primary Care Physician [facility] 09[facility]21 - 01/20/22 [facility] [employer] [address], [address]th [place] [address]- Attending Physician: Not on Staff, Attending MD Referring Physician: Rosa Gonzalez MD Allergies, Adverse Reactions, Alerts Substance Reaction Severity Status Other Food Allergy 1 vomiting Active 1Candy [place] Immunizations Given and Recorded Vaccine Date Status [...] (old term) 01 Given 1Admin Note: [facility] [id number] 2Admin Note: VIS dated 05/24/11 given 3Admin [...] 04/30/22 8:23:00 EDT, 04/30/21 8:23:00 EDT, Cream, [facility] #[id number], Partial fill upon patient request if the prescription is for a schedule II opioid drug., 1 application T... Start Date: 04/30/21 Stop Date: 04/30/22 Status: Ordered famotidine 20 mg oral tablet 20 mg, 1, tablet, By Mouth, 2 times a day, # 60 tablet, Refills 2, Tot. Refills 2, Maintenance, 01/14/22 16:24:00 EDT, Route to Pharmacy Electronically, [facility] #[id number], Partial fill uponpatient request if the prescription [...]
--- OUTSIDE RECORDS SUMMARY | 2023-01-01 22:02 | XMS_ITS | Continuity of Care Document ---
Author Name Unknown Organization [facility] [employer] [facility] [employer] Address [address], [address] [place] [address]- Care Team Providers Care Health Actuary Name Role Phone Branch Rosa PEÑA Primary Care Physician [facility] Date[facility]s): 12/13/21 - 12/20/21 [facility] [employer] [facility] [address], [address] [place] [address]- Attending Physician: Bola Sanchez MD Allergies, Adverse Reactions, Alerts Substance Reaction Severity Status Other Food Allergy 1 vomiting Active 1Candy [place] Immunizations Given and Recorded Vaccine Date Status [...] 01 Given 1Admin Note: [facility] [id number] 2Admin Note: VIS dated 05/24/11 given 3Admin [...] Acute 04/30/22 8:23:00 EDT, 04/30/21 8:23:00 EDT, [facility][id number], Partial fill upon patient request if the prescription is for a schedule II opioid drug., 1 application T... Start Date: 04/30/21 Stop Date: 04/30/22 Status: Ordered Problem List Condition Effective Dates Status Health Status Inform ant Dysmenorrhea in adolescent(Confirmed) Active Bilateral fibrocystic breast disease(Confirmed) Active Irritable bowel syndrome (IBS)(Confirmed) Active General counseling and advic e on female contraception(Confirmed) Active Mild scoliosis(Confirmed) Active Vaginal pain(Confirmed) Active Vital Signs Most recent to oldest [Reference Range]: 1 Height 152.4 cm (12/13/21 4:17 PM) Weight 52.27 kg (12/13/21 4:17 PM) Body Mass Index [18.5-24.99] 22.51 (12/13/21 4:17 PM) Blood Pressure [90-138/55-84 mm Hg] 100/ 58mm Hg (12/13/21 4:17 PM) Blood pressure sites Arm, left (12/13/21 4:17 PM) Weight Obtained Via Standing scale (12/13/21 4:17 PM) Social History Social History Type Response Smoking Status Never (less than 100 in lifetime) entered on: 05/28/19 Sex
--- OUTSIDE RECORDS SUMMARY | 2023-01-01 22:02 | XMS_ITS | Continuity of Care Document ---
Author Name Unknown Organization [facility] Address [address], [address] [place] [address]- Care Team Providers Care Bridge Teacher Name Role Phone Branch Rosa PEÑA Primary Care Physician [facility] Date[facility]s): 04/18/21 - 04/25/21 [facility] [address], [address]th [place] [address]- Attending Physician: Vazquez PEÑA [OB], Mirian Otoole Admitting Physician: Vazquez PEÑA [OB], Mirian Otoole Referring Physician: Natalie Smith CNM Allergies, Adverse Reactions, Alerts Substance Reaction Severity Status Other Food Allergy 1 vomiting Active 1Candy [place] Immunizations Given and Recorded Vaccine Date Status [...] 1Admin Note: [facility] [id number] 2Admin Note: VIS dated 05/24/11 given 3Admin [...] 3 Refills, Maintenance, 04/18/21 16:50:00 EDT, Tablet, [facility] #[id number], Partial fill upon patient request if the prescription is for a schedule II opioid drug., 1 tablet By Mouth Daily, 153, cm, 0... Start Date: 04/18/21 Status: Ordered Diflucan 150 mg oral tablet 1 tablet = 150 mg, By Mouth, Once, # 1 tablet, 0 Refills, Soft Stop, 03/22/21 9:44:00 EDT, Tablet, [facility] #[id number], Partial fill upon patient request if the prescription is for a scheduleII opioid drug., 152.5, cm, 01/30/21 14:10:00 EDT,... Start Date: 03/22/21 Status: Ordered Diflucan 150 mg oral tablet 1 tablet = 150 mg, By Mouth, Once, # 1 tablet, 0 Refills, Soft Stop, 03/20/21 13:51:00 EDT, Tablet,[facility] #[id number], Partial fill upon patient request if the prescription is for a schedule II opioid drug., 152.5, cm, 01/30/21 14:10:00 EDT,... Start Date: 03/20/21 Status: Ordered hydrocortisone 2.5% topical ointment 1 application, Topically, 3 times a day, # 20 Gm, 0 Refills, Maintenance, 02/18/20 17:57:00 EDT, Ointment, [facility] #[id number], 1 application Topically 3 times a day,x7 days, 152.5, cm, 08/31/19 15:09:00 EST, Height, 49.6, kg, 06/29/19 10:29:0... Start Date: 02/18/20 Stop Date: 02/25/20 Status: Ordered hydrocortisone topical 25 mg suppository 1 supp = 25 mg, Rectally, 2 times a day, # 28 supp, 1 Refills, Maintenance, 08/10/20 15:14:00 EST, Suppository, [facility] #[id number], Partial fill upon patient request if the prescription is for a schedule II opioid drug., 152.5, cm, 07/14/20 1... Start Date: 08/10/20 Stop Date: 09/07/20 Status: Ordered ibuprofen 400 mg oral tablet 400 mg, 1, tablet, By Mouth, Every 6 hours, PRN, # 30 tablet, Refills 2, Tot. Refills 2, Maintenance, as needed for menstrual pain, 06/29/19 10:54:35 EST, Route to Pharmacy Electronically, [id number], [id number] Start Date: 06/29/19 Status: Ordered Problem List Condition Effective Dates Status Health Status Inform ant Dysmenorrhea in adolescent(Confirmed) Active Bilateral fibrocystic breast disease(Confirmed) Active Irritable bowel syndrome (IBS)(Confirmed) Active General counseling and advic e on female contraception(Confirmed) Active Mild scoliosis(Confirmed) Active Vaginal pain(Confirmed) Active Vital Signs Most recent to oldest [Reference Range]: 1 Height 153 cm (04/18/21 11:22 AM) Weight 50.36 kg (04/18/21 11:22 AM) Body Mass Index [18.5-24.99] 21.51 (04/18/21 11:22 AM) Blood Pressure [90-138/55-84 mm Hg] 111/ 67mm Hg (04/18/21 11:22 AM) Blood pressure sites Arm, right (04/18/21 11:22 AM) Weight Obtained Via Standing scale (04/18/21 11:22 AM) Social History Social History Type Response Smoking Status Never (less than 100 in lifetime) entered on: 05/28/19 Sex
--- OUTSIDE RECORDS SUMMARY | 2023-01-01 22:02 | XMS_ITS | Continuity of Care Document ---
Author Name Unknown Organization [facility] Address [address], [address] [place] [address]- Care Team Providers Care Geriatrician Name Role Phone Branch Rosa PEÑA Primary Care Physician [facility]): 02[facility]18[facility]20 - 03/19/20 [facility] [address], [address] [place] [address]- [facility] Allergies, Adverse Reactions, Alerts Substance Reaction Severity Status Other Food Allergy 1 vomiting Active 1Candy [place] Immunizations Given and Recorded Vaccine Date Status [...] Vaccine (old term) 01 Given 1Admin Note: [facility] [id number] 2Admin Note: VIS dated 05/24/11 given 3Admin [...] 0 Refills, Soft Stop, 01/11/20 16:55:00 EDT, Tablet,[facility] #[id number], 152.5, cm, 08/31/19 15:09:00 EST, Height, 49.6, kg, 06/29/19 10:29:00 EST, Dry Weight Start Date: 01/11/20 Status: Ordered hydrocortisone 2.5% topical ointment 1 application, Topically, 3 times a day, # 20 Gm, 0 Refills, Maintenance, 02/18/20 17:57:00 EDT, Ointment, [facility] #[id number], 1 application Topically 3 times a day,x7 days, 152.5, cm, 08/31/19 15:09:00 EST, Height, 49.6, kg, 06/29/19 10:29:0... Start Date: 02/18/20 Stop Date: 02/25/20 Status: Ordered ibuprofen 400 mg oral tablet 400 mg, 1, tablet, By Mouth, Every 6 hours, PRN, # 30 tablet, Refills 2, Tot. Refills 2, Maintenance, as needed for menstrual pain, 06/29/19 10:54:35 EST, Route to Pharmacy Electronically, [id number], [facility] #[id number] Start Date: 06/29/19 Status: Ordered Xulane 150 mcg-35 mcg/24 hr transdermal film, extended release See Instructions, 1 patch Topically apply a new patch weekly for 3 weeks, remove for 1 week, then repeat cycle, # 9 each, 5 Refills, Maintenance, 08/31/19 15:18:00 EST, [facility] #[id number], 1patch Topically; apply a new patch weekly [...]
--- OUTSIDE RECORDS SUMMARY | 2023-01-01 22:02 | XMS_ITS | Continuity of Care Document ---
Author Name Unknown Organization [facility] Address [address] [place] [address]- Care Team Providers Care Career Based Intervention Coordinator Name Role Phone Branch Rosa PEÑA Primary Care Physician [facility]): 07/14/20 - 08/13/20 [facility] [address] [place] [address]- Allergies, Adverse Reactions, Alerts Substance Reaction Severity Status Other Food Allergy 1 vomiting Active 1Candy [place] Immunizations Given and Recorded Vaccine Date Status [...] Vaccine (old term) 01 Given 1Admin Note: [facility] [id number] 2Admin Note: VIS dated 05/24/11 given 3Admin [...] 0 Refills, Maintenance, 02/18/20 17:57:00 EDT, [id number], 1 application Topically 3 times a day,x7 days, 152.5, cm, 08/31/19 15:09:00 EST, Height, 49.6, kg, 06/29/19 10:29:0... Start Date: 02/18/20 Stop Date: 02/25/20 Status: Ordered hydrocortisone topical 25 mg suppository 1 supp = 25 mg, Rectally, 2 times a day, # 28 supp, 1 Refills, Maintenance, 08/10/20 15:14:00 EST, Suppository, [facility] #[id number], Partial fill upon patient request if the prescription is for a schedule II opioid drug., 152.5, cm, 07/14/20 1... Start Date: 08/10/20 Stop Date: 09/07/20 Status: Ordered ibuprofen 400 mg oral tablet 400 mg, 1, tablet, By Mouth, Every 6 hours, PRN, # 30 tablet, Refills 2, Tot. Refills 2, Maintenance, as needed for menstrual pain, 06/29/19 10:54:35 EST, Route to Pharmacy Electronically, [id number], [facility] #[id number] Start Date: 06/29/19 Status: Ordered Xulane 150 mcg-35 mcg/24 hr transdermal film, extended release See Instructions, 1 patch Topically apply a new patch weekly for 3 weeks, remove for 1 week, then repeat cycle, # 9 each, 5 Refills, Maintenance, 08/31/19 15:18:00 EST, [facility] #[id number], 1patch Topically; apply a new patch weekly for 3 we... Start Date: 08/31/19 Status: Ordered Problem List Condition Effective Dates Status Health Status Inform ant Dysmenorrhea in adolescent(Confirmed) Active Bilateral fibrocystic breast disease(Confirmed) Active Irritable bowel syndrome (IBS)(Confirmed) Active Mild scoliosis(Confirmed) Active Vital Signs Most recent to oldest [Reference Range]: 1 Height 152.5 cm (07/14/20 2:21 PM) Weight 50.6 kg 1 (07/14/20 2:21 PM) Body Mass Index [18.5-24.99] 21.76 (07/14/20 2:21 PM) Dry Weight 50.6 kg 2 (07/14/20 2:21 PM) 1Result Comment: obtained 06/23/20 2Result Comment: obtained 06/23/20 Social History Social History Type Response Smoking Status Never (less than 100 in lifetime) entered on: 05/28/19 Sex
--- OUTSIDE RECORDS SUMMARY | 2023-01-01 22:02 | XMS_ITS | Continuity of Care Document ---
Author Name Unknown Organization [facility] [employer] Address [address], [address] [place] [address]- Care Team Providers Care Switch Inspector Name Role Phone Branch Rosa PEÑA Primary Care Physician [facility] 12[facility]14[facility]19 - 01/13/20 [facility] [employer] [facility] [address], [address] [place] [address]- [facility] Attending Physician: Vanesa Oquendo Admitting Physician: Vanesa Oquendo Referring Physician: Vanesa Oquendo Allergies, Adverse Reactions, Alerts Substance Reaction Severity Status Other Food Allergy 1 vomiting Active 1Candy [place] Immunizations Given and Recorded Vaccine Date Status [...] (old term) 01 Given 1Admin Note: [facility] [id number] 2Admin Note: VIS dated 05/24/11 given 3Admin [...] 0 Refills, Soft Stop, 01/11/20 16:55:00 EDT, Tablet,[facility] #[id number], 152.5, cm, 08/31/19 15:09:00 EST, Height, 49.6, kg, 06/29/19 10:29:00 EST, Dry Weight Start Date: 01/11/20 Status: Ordered ibuprofen 400 mg oral tablet 400 mg, 1, tablet, By Mouth, Every 6 hours, PRN, # 30 tablet, Refills 2, Tot. Refills 2, Maintenance, as needed for menstrual pain, 06/29/19 10:54:35 EST, Route to Pharmacy Electronically, [id number], [facility] #[id number] Start Date: 06/29/19 Status: Ordered Xulane 150 mcg-35 mcg/24 hr transdermal film, extended release See Instructions, 1 patch Topically apply a new patch weekly for 3 weeks, remove for 1 week, then repeat cycle, # 9 each, 5 Refills, Maintenance, 08/31/19 15:18:00 EST, [facility] #[id number], 1patch Topically; apply a new patch weekly [...]
--- OUTSIDE RECORDS SUMMARY | 2023-01-01 22:02 | XMS_ITS | Continuity of Care Document ---
Author Name Unknown Organization [facility] Address [address], [address] [place] [address]- Care Team Providers Care Ad Operations Coordinator Name Role Phone Branch Rosa PEÑA Primary Care Physician [facility]): 10/18/21 - 11/17/21 [facility] [address], [address]th [place] [address]- Allergies, Adverse Reactions, Alerts Substance Reaction Severity Status Other Food Allergy 1 vomiting Active 1Candy [place] Immunizations Given and Recorded Vaccine Date Status [...] Vaccine (old term) 01 Given 1Admin Note: [facility] [id number] 2Admin Note: VIS dated 05/24/11 given 3Admin [...] 04/30/22 8:23:00 EDT, 04/30/21 8:23:00 EDT, Cream, [facility] #[id number], Partial fill upon patient request if the prescription is for a schedule II opioid drug., 1 application T... Start Date: 04/30/21 Stop Date: 04/30/22 Status: Ordered hydrocortisone 2.5% topical ointment 1 application, Topically, 3 times a day, # 20 Gm, 0 Refills, Maintenance, 02/18/20 17:57:00 EDT, Ointment, [facility] #[id number], 1 application Topically 3 times a day,x7 days, 152.5, cm, 08/31/19 15:09:00 EST, Height, 49.6, kg, 06/29/19 10:29:0... Start Date: 02/18/20 Stop Date: 02/25/20 Status: Ordered hydrocortisone topical 25 mg suppository 1 supp = 25 mg, Rectally, 2 times a day, # 28 supp, 1 Refills, Maintenance, 08/10/20 15:14:00 EST, Suppository, [facility] #[id number], Partial fill upon patient request if the prescription is for a schedule II opioid drug., 152.5, cm, 07/14/20 1... Start Date: 08/10/20 Stop Date: 09/07/20 Status: Ordered ibuprofen 400 mg oral tablet 400 mg, 1, tablet, By Mouth, Every 6 hours, PRN, # 30 tablet, Refills 2, Tot. Refills 2, Maintenance, as needed for menstrual pain, 06/29/19 10:54:35 EST, Route to Pharmacy Electronically, [id number], [facility] #[id number] Start Date: 06/29/19 Status: Ordered omeprazole 20 mg oral enteric coated capsule 1 capsule = 20 mg, By Mouth, Daily, # 30 capsule, 2 Refills, Maintenance, 10/26/21 17:58:00 EDT, ECCapsule, [facility] #[id number], Partial fill upon patient request if the [...]
--- OUTSIDE RECORDS SUMMARY | 2023-01-01 22:02 | XMS_ITS | Continuity of Care Document ---
Author Name Unknown Organization [facility] Address [address], [address] [place] [address]- Care Team Providers Care Applications Coordinator Name Role Phone Branch Rosa PEÑA Primary Care Physician [facility]): 04/03/21 - 05/03/21 [facility] [address], [address] [place] [address]- Allergies, Adverse Reactions, Alerts Substance Reaction Severity Status Other Food Allergy 1 vomiting Active 1Candy [place] Immunizations Given and Recorded Vaccine Date Status [...] (old term) 01 Given 1Admin Note: [facility][NOTE 2] [id number] 2Admin Note: VIS dated 05/24/11 given 3Admin [...] 3 Refills, Maintenance, 04/18/21 16:50:00 EDT, Tablet, [facility] #[id number], Partial fill upon patient request if the prescription is for a schedule II opioid drug., 1 tablet By Mouth Daily, 153, cm, 0... Start Date: 04/18/21 Status: Ordered betamethasone-clotrimazole 0.05%-1% topical cream 1 application, Topically, 2 times a day, # 45 Gm, 0 Refills, Acute 04/30/22 8:23:00 EDT, 04/30/21 8:23:00 EDT, Cream, [facility] #[id number], Partial fill upon patient request if the prescription is for a schedule II opioid drug., 1 application T... Start Date: 04/30/21 Stop Date: 04/30/22 Status: Ordered Diflucan 150 mg oral tablet 1 tablet = 150 mg, By Mouth, Once, # 1 tablet, 0 Refills, Soft Stop, 03/22/21 9:44:00 EDT, Tablet, [facility] #[id number], Partial fill upon patient request if the prescription is for a scheduleII opioid drug., 152.5, cm, 01/30/21 14:10:00 EDT,... Start Date: 03/22/21 Status: Ordered Diflucan 150 mg oral tablet 1 tablet = 150 mg, By Mouth, Once, # 1 tablet, 0 Refills, Soft Stop, 03/20/21 13:51:00 EDT, Tablet,[facility] #[id number], Partial fill upon patient request if the prescription is for a schedule II opioid drug., 152.5, cm, 01/30/21 14:10:00 EDT,... Start Date: 03/20/21 Status: Ordered hydrocortisone 2.5% topical ointment 1 application, Topically, 3 times a day, # 20 Gm, 0 Refills, Maintenance, 02/18/20 17:57:00 EDT, Ointment, [facility] #[id number], 1 application Topically 3 times a day,x7 days, 152.5, cm, 08/31/19 15:09:00 EST, Height, 49.6, kg, 06/29/19 10:29:0... Start Date: 02/18/20 Stop Date: 02/25/20 Status: Ordered hydrocortisone topical 25 mg suppository 1 supp = 25 mg, Rectally, 2 times a day, # 28 supp, 1 Refills, Maintenance, 08/10/20 15:14:00 EST, Suppository, [facility] #[id number], Partial fill upon patient request if the prescription is for a schedule II opioid drug., 152.5, cm, 07/14/20 1... Start Date: 08/10/20 Stop Date: 09/07/20 Status: Ordered ibuprofen 400 mg oral tablet 400 mg, 1, tablet, By Mouth, Every 6 hours, PRN, # 30 tablet, Refills 2, Tot. Refills 2, Maintenance, as needed for menstrual pain, 06/29/19 10:54:35 EST, Route to Pharmacy Electronically, [id number], [facility] #[id number] Start Date: 06/29/19 Status: Ordered Problem List [...]
--- OUTSIDE RECORDS SUMMARY | 2023-01-01 22:02 | XMS_ITS | Continuity of Care Document ---
Author Name Unknown Organization [facility] Address [address], [address] [place] [address]- Care Team Providers Care Project Inspector Name Role Phone Branch Rosa PEÑA Primary Care Physician [facility] 08[facility]21 - 09/05/21 [facility] [place] [facility] [employer] [facility] [address], [address] [place], [place] [address] Allergies, Adverse Reactions, Alerts Substance Reaction Severity Status Other Food Allergy 1 vomiting Active 1Candy [place] Immunizations Given and Recorded Vaccine Date Status [...] Vaccine (old term) 01 Given 1Admin Note: [facility] [id number] 2Admin Note: VIS dated 05/24/11 given 3Admin [...] 3 Refills, Maintenance, 04/18/21 16:50:00 EDT, [id number], Partial fill upon patient request if the prescription is for a schedule II opioid drug., 1 tablet By Mouth Daily, 153, cm, 090... Start Date: 04/18/21 Status: Ordered betamethasone-clotrimazole 0.05%-1% topical cream 1 application, Topically, 2 times a day, # 45 Gm, 0 Refills, Acute 04/30/22 8:23:00 EDT, 04/30/21 8:23:00 EDT, Cream, [facility] #[id number], Partial fill upon patient request if the prescription is for a schedule II opioid drug., 1 application T... Start Date: 04/30/21 Stop Date: 04/30/22 Status: Ordered Diflucan 150 mg oral tablet 1 tablet = 150 mg, By Mouth, Once, # 1 tablet, 0 Refills, Soft Stop, 08/06/21 13:16:00 EST, Tablet,[facility] #[id number], Partial fill upon patient request if the prescription is for a schedule II opioid drug., 153, cm, 04/30/21 8:16:00 EDT, He... Start Date: 08/06/21 Status: Ordered hydrocortisone 2.5% topical ointment 1 application, Topically, 3 times a day, # 20 Gm, 0 Refills, Maintenance, 02/18/20 17:57:00 EDT, Ointment, [facility] #[id number], 1 application Topically 3 times a day,x7 days, 152.5, cm, 08/31/19 15:09:00 EST, Height, 49.6, kg, 06/29/19 10:29:0... Start Date: 02/18/20 Stop Date: 02/25/20 Status: Ordered hydrocortisone topical 25 mg suppository 1 supp = 25 mg, Rectally, 2 times a day, # 28 supp, 1 Refills, Maintenance, 08/10/20 15:14:00 EST, Suppository, [facility] #[id number], Partial fill upon patient request if the prescription is for a schedule II opioid drug., 152.5, cm, 07/14/20 1... Start Date: 08/10/20 Stop Date: 09/07/20 Status: Ordered ibuprofen 400 mg oral tablet 400 mg, 1, tablet, By Mouth, Every 6 hours, PRN, # 30 tablet, Refills 2, Tot. Refills 2, Maintenance, as needed for menstrual pain, 06/29/19 10:54:35 EST, Route to Pharmacy Electronically, [id number], [id number] Start Date: 06/29/19 Status: Ordered Problem List [...]
--- OUTSIDE RECORDS SUMMARY | 2023-01-01 22:02 | XMS_ITS | Continuity of Care Document ---
Author Name Unknown Organization [facility] Address [address], [address] [place] [address]- Care Team Providers Care Cable Strander Name Role Phone Branch Rosa PEÑA Primary Care Physician [facility] Date[facility]s): 05/16/20 - 06/15/20 [facility] [address], [address] [place] [address]- Attending Physician: Vanesa Oquendo Admitting Physician: Vanesa Oquendo Referring Physician: AdmtrVanesa Allergies, Adverse Reactions, Alerts Substance Reaction Severity Status Other Food Allergy 1 vomiting Active 1Candy [place] Immunizations Given and Recorded Vaccine Date Status [...] Vaccine (old term) 01 Given 1Admin Note: [facility] [id number] 2Admin Note: VIS dated 05/24/11 given 3Admin [...] Stop, 01/11/20 16:55:00 EDT, Tablet,[facility] #[id number], 152.5, cm, 08/31/19 15:09:00 EST, Height, 49.6, kg, 06/29/19 10:29:00 EST, Dry Weight Start Date: 01/11/20 Status: Ordered hydrocortisone 2.5% topical ointment 1 application, Topically, 3 times a day, # 20 Gm, 0 Refills, Maintenance, 02/18/20 17:57:00 EDT, Ointment, [facility] #[id number], 1 application Topically 3 times a day,x7 days, 152.5, cm, 08/31/19 15:09:00 EST, Height, 49.6, kg, 06/29/19 10:29:0... Start Date: 02/18/20 Stop Date: 02/25/20 Status: Ordered ibuprofen 400 mg oral tablet 400 mg, 1, tablet, By Mouth, Every 6 hours, PRN, # 30 tablet, Refills 2, Tot. Refills 2, Maintenance, as needed for menstrual pain, 06/29/19 10:54:35 EST, Route to Pharmacy Electronically, [id number], [facility] #[id number] Start Date: 06/29/19 Status: Ordered metroNIDAZOLE 1.3% vaginal gel with applicator See Instructions, Vaginally at hs x 5 days, # 5 Gm, 0 Refills, Maintenance, 05/16/20 17:30:00 EDT, [facility] #[id number], Vaginally at hs x 5 days, 152.5, cm, 05/16/20 14:37:00 EDT, Height, 49.6, kg, 06/29/19 10:29:00 EST, Dry Weight Start Date: 05/16/20 Status: Ordered Xulane 150 mcg-35 mcg/24 hr transdermal film, extended release See Instructions, 1 patch Topically apply a new patch weekly for 3 weeks, remove for 1 week, then repeat cycle, # 9 each, 5 Refills, Maintenance, 08/31/19 15:18:00 EST, [facility] #[id number], 1patch Topically; apply a new patch weekly [...]
--- OUTSIDE RECORDS SUMMARY | 2023-01-01 22:02 | XMS_ITS | Continuity of Care Document ---
Author Name Unknown Organization [facility] Address [address], [address] [place] [address]- Care Team Providers Care Wholesale Buyer Name Role Phone Branch Rosa PEÑA Primary Care Physician [facility] Date[facility]s): 09/25/21 - 10/25/21 [facility] [address], [address] [place] [address]- Allergies, Adverse Reactions, Alerts Substance Reaction Severity Status Other Food Allergy 1 vomiting Active 1Candy [place] Immunizations Given and Recorded Vaccine Date Status [...] Vaccine (old term) 01 Given 1Admin Note: [facility] [id number] 2Admin Note: VIS dated 05/24/11 given 3Admin [...] 04/30/22 8:23:00 EDT, 04/30/21 8:23:00 EDT, Cream, [facility] #[id number], Partial fill upon patient request if the prescription is for a schedule II opioid drug., 1 application T... Start Date: 04/30/21 Stop Date: 04/30/22 Status: Ordered hydrocortisone 2.5% topical ointment 1 application, Topically, 3 times a day, # 20 Gm, 0 Refills, Maintenance, 02/18/20 17:57:00 EDT, Ointment, [facility] #[id number], 1 application Topically 3 times a day,x7 days, 152.5, cm, 08/31/19 15:09:00 EST, Height, 49.6, kg, 06/29/19 10:29:0... Start Date: 02/18/20 Stop Date: 02/25/20 Status: Ordered hydrocortisone topical 25 mg suppository 1 supp = 25 mg, Rectally, 2 times a day, # 28 supp, 1 Refills, Maintenance, 08/10/20 15:14:00 EST, Suppository, [facility] #[id number], Partial fill upon patient request if the prescription is for a schedule II opioid drug., 152.5, cm, 07/14/20 1... Start Date: 08/10/20 Stop Date: 09/07/20 Status: Ordered ibuprofen 400 mg oral tablet 400 mg, 1, tablet, By Mouth, Every 6 hours, PRN, # 30 tablet, Refills 2, Tot. Refills 2, Maintenance, as needed for menstrual pain, 06/29/19 10:54:35 EST, Route to Pharmacy Electronically, [id number], [facility] #[id number] Start Date: 06/29/19 Status: Ordered metroNIDAZOLE 500 mg oral tablet 1 tablet = 500 mg, By Mouth, 2 times a day, for 7 days, # 14 tablet, 0 Refills, Acute 11/01/21 16:24:00 EDT, 10/25/21 16:24:00 EDT, [facility] #[id number], Partial fill upon patient request if the prescription is for a schedule II opioid drug., 1... Start Date: 10/25/21 Stop Date: 11/01/21 Status: Ordered omeprazole 20 mg oral enteric coated capsule 1 capsule = 20 mg, By Mouth, Daily, # 14 capsule, 1 Refills, Maintenance, 09/25/21 12:16:00 [facility] #[id number], Partial fill upon patient request if the [...]
--- OUTSIDE RECORDS SUMMARY | 2023-01-01 22:02 | XMS_ITS | Continuity of Care Document ---
Author Name Unknown Organization [facility] Address [address] [place] [address]- Care Team Providers Care Best Second Jobs Name Role Phone Branch Rosa PEÑA Primary Care Physician [facility] Date[facility]s): 03/30/21 - 04/29/21 [facility] [address] [place] [address] Attending Physician: Vanesa Oquendo Admitting Physician: AdmVanesa remy Referring Physician: AdmtrVanesa Allergies, Adverse Reactions, Alerts Substance Reaction Severity Status Other Food Allergy 1 vomiting Active 1Candy [place] Immunizations Given and Recorded Vaccine Date Status [...] Vaccine (old term) 01 Given 1Admin Note: [facility] [id number] 2Admin Note: VIS dated 05/24/11 given 3Admin [...] 3 Refills, Maintenance, 04/18/21 16:50:00 EDT, Table[facility], [id number], Partial fill upon patient request if the prescription is for a schedule II opioid drug., 1 tablet By Mouth Daily, 153, cm, 090... Start Date: 04/18/21 Status: Ordered Diflucan 150 mg oral tablet 1 tablet = 150 mg, By Mouth, Once, # 1 tablet, 0 Refills, Soft Stop, 03/22/21 9:44:00 EDT, Tablet, [facility] #[id number], Partial fill upon patient request if the prescription is for a scheduleII opioid drug., 152.5, cm, 01/30/21 14:10:00 EDT,... Start Date: 03/22/21 Status: Ordered Diflucan 150 mg oral tablet 1 tablet = 150 mg, By Mouth, Once, # 1 tablet, 0 Refills, Soft Stop, 03/20/21 13:51:00 EDT, Tablet,[facility][id number], Partial fill upon patient request if the prescription is for a schedule II opioid drug., 152.5, cm, 01/30/21 14:10:00 EDT,... Start Date: 03/20/21 Status: Ordered hydrocortisone 2.5% topical ointment 1 application, Topically, 3 times a day, # 20 Gm, 0 Refills, Maintenance, 02/18/20 17:57:00 EDT, Ointment, [facility] #[id number], 1 application Topically 3 times a day,x7 days, 152.5, cm, 08/31/19 15:09:00 EST, Height, 49.6, kg, 06/29/19 10:29:0... Start Date: 02/18/20 Stop Date: 02/25/20 Status: Ordered hydrocortisone topical 25 mg suppository 1 supp = 25 mg, Rectally, 2 times a day, # 28 supp, 1 Refills, Maintenance, 08/10/20 15:14:00 EST, Suppository, [facility] #[id number], Partial fill upon patient request if the prescription is for a schedule II opioid drug., 152.5, cm, 07/14/20 1... Start Date: 08/10/20 Stop Date: 09/07/20 Status: Ordered ibuprofen 400 mg oral tablet 400 mg, 1, tablet, By Mouth, Every 6 hours, PRN, # 30 tablet, Refills 2, Tot. Refills 2, Maintenance, as needed for menstrual pain, 06/29/19 10:54:35 EST, Route to Pharmacy Electronically, [id number], [facility] #[id number] Start Date: 06/29/19 Status: Ordered Problem List [...]
--- OUTSIDE RECORDS SUMMARY | 2023-01-01 22:02 | XMS_ITS | Continuity of Care Document ---
Author Name Unknown Organization [facility] [employer] Address [address], [address] [place] [address]- Care Team Providers Care Rum Processing Operator Name Role Phone Branch Rosa PEÑA Primary Care Physician [place] [facility] [place]): 05/18[place]21 - 06/17/21 [facility] [place] [facility] [address], [address] [place], [place] [address] Attending Physician: Vanesa Oquendo Admitting Physician: Vanesa Oquendo Referring Physician: AdmtrVanesa Allergies, Adverse Reactions, Alerts Substance Reaction Severity Status Other Food Allergy 1 vomiting Active 1Candy [place] Immunizations Given and Recorded Vaccine Date Status [...] (old term) 01 Given 1Admin Note: [facility] [id number] 2Admin Note: VIS dated 05/24/11 given 3Admin [...] 3 Refills, Maintenance, 04/18/21 16:50:00 EDT, Tablet, [facility] #[id number], Partial fill upon patient request if the prescription is for a schedule II opioid drug., 1 tablet By Mouth Daily, 153, cm, 0... Start Date: 04/18/21 Status: Ordered betamethasone-clotrimazole 0.05%-1% topical cream 1 application, Topically, 2 times a day, # 45 Gm, 0 Refills, Acute 04/30/22 8:23:00 EDT, 04/30/21 8:23:00 EDT, Cream, [facility] #[id number], Partial fill upon patient request if the prescription is for a schedule II opioid drug., 1 application T... Start Date: 04/30/21 Stop Date: 04/30/22 Status: Ordered Diflucan 150 mg oral tablet 1 tablet = 150 mg, By Mouth, Once, # 1 tablet, 0 Refills, Soft Stop, 03/22/21 9:44:00 EDT, Tablet, [facility] #[id number], Partial fill upon patient request if the prescription is for a scheduleII opioid drug., 152.5, cm, 01/30/21 14:10:00 EDT,... Start Date: 03/22/21 Status: Ordered Diflucan 150 mg oral tablet 1 tablet = 150 mg, By Mouth, Once, # 1 tablet, 0 Refills, Soft Stop, 03/20/21 13:51:00 EDT, Tablet,[facility] #[id number], Partial fill upon patient request if the prescription is for a schedule II opioid drug., 152.5, cm, 01/30/21 14:10:00 EDT,... Start Date: 03/20/21 Status: Ordered hydrocortisone 2.5% topical ointment 1 application, Topically, 3 times a day, # 20 Gm, 0 Refills, Maintenance, 02/18/20 17:57:00 EDT, Ointment, [facility] #[id number], 1 application Topically 3 times a day,x7 days, 152.5, cm, 08/31/19 15:09:00 EST, Height, 49.6, kg, 06/29/19 10:29:0... Start Date: 02/18/20 Stop Date: 02/25/20 Status: Ordered hydrocortisone topical 25 mg suppository 1 supp = 25 mg, Rectally, 2 times a day, # 28 supp, 1 Refills, Maintenance, 08/10/20 15:14:00 EST, Suppository, [facility] #[id number], Partial fill upon patient request if the prescription is for a schedule II opioid drug., 152.5, cm, 07/14/20 1... Start Date: 08/10/20 Stop Date: 09/07/20 Status: Ordered ibuprofen 400 mg oral tablet 400 mg, 1, tablet, By Mouth, Every 6 hours, PRN, # 30 tablet, Refills 2, Tot. Refills 2, Maintenance, as needed for menstrual pain, 06/29/19 10:54:35 EST, Route to Pharmacy Electronically, [id number], [facility] #[id number] Start Date: 06/29/19 Status: Ordered Problem List [...]
--- OUTSIDE RECORDS SUMMARY | 2023-01-01 22:02 | XMS_ITS | Continuity of Care Document ---
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 Name Role Phone Branch Rosa PEÑA Primary Care Physician [facility] Date[facility]s): 04/30/21 - 05/07/21 [facility] [address], [address] [place] [address]- Attending Physician: Vazquez PEÑA [OB], Mirian Otoole Allergies, Adverse Reactions, Alerts Substance Reaction Severity Status Other Food Allergy 1 vomiting Active 1Candy [place] Immunizations Given and Recorded Vaccine Date Status [...] 01 Given 1Admin Note: [facility] [id number] 2Admin Note: VIS dated 05/24/11 given 3Admin [...] 3 Refills, Maintenance, 04/18/21 16:50:00 EDT, [facility], [id number], Partial fill upon patient request if the prescription is for a schedule II opioid drug., 1 tablet By Mouth Daily, 153, cm, 0... Start Date: 04/18/21 Status: Ordered betamethasone-clotrimazole 0.05%-1% topical cream 1 application, Topically, 2 times a day, # 45 Gm, 0 Refills, Acute 04/30/22 8:23:00 EDT, 04/30/21 8:23:00 EDT, Cream, [facility] #[id number], Partial fill upon patient request if the prescription is for a schedule II opioid drug., 1 application T... Start Date: 04/30/21 Stop Date: 04/30/22 Status: Ordered Diflucan 150 mg oral tablet 1 tablet = 150 mg, By Mouth, Once, # 1 tablet, 0 Refills, Soft Stop, 03/22/21 9:44:00 EDT, Tablet, [facility] #[id number], Partial fill upon patient request if the prescription is for a scheduleII opioid drug., 152.5, cm, 01/30/21 14:10:00 EDT,... Start Date: 03/22/21 Status: Ordered Diflucan 150 mg oral tablet 1 tablet = 150 mg, By Mouth, Once, # 1 tablet, 0 Refills, Soft Stop, 03/20/21 13:51:00 EDT, Tablet,[facility] #[id number], Partial fill upon patient request if the prescription is for a schedule II opioid drug., 152.5, cm, 01/30/21 14:10:00 EDT,... Start Date: 03/20/21 Status: Ordered hydrocortisone 2.5% topical ointment 1 application, Topically, 3 times a day, # 20 Gm, 0 Refills, Maintenance, 02/18/20 17:57:00 EDT, Ointment, [facility] #[id number], 1 application Topically 3 times a day,x7 days, 152.5, cm, 08/31/19 15:09:00 EST, Height, 49.6, kg, 06/29/19 10:29:0... Start Date: 02/18/20 Stop Date: 02/25/20 Status: Ordered hydrocortisone topical 25 mg suppository 1 supp = 25 mg, Rectally, 2 times a day, # 28 supp, 1 Refills, Maintenance, 08/10/20 15:14:00 EST, Suppository, [facility] #[id number], Partial fill upon patient request if the prescription is for a schedule II opioid drug., 152.5, cm, 07/14/20 1... Start Date: 08/10/20 Stop Date: 09/07/20 Status: Ordered ibuprofen 400 mg oral tablet 400 mg, 1, tablet, By Mouth, Every 6 hours, PRN, # 30 tablet, Refills 2, Tot. Refills 2, Maintenance, as needed for menstrual pain, 06/29/19 10:54:35 EST, Route to Pharmacy Electronically, [id number], [facility] #[id number] Start Date: 06/29/19 Status: Ordered Problem List Condition Effective Dates Status Health Status Inform ant Dysmenorrhea in adolescent(Confirmed) Active Bilateral fibrocystic breast disease(Confirmed) Active Irritable bowel syndrome (IBS)(Confirmed) Active General counseling and advic e on female contraception(Confirmed) Active Mild scoliosis(Confirmed) Active Vaginal pain(Confirmed) Active Vital Signs Most recent to oldest [Reference Range]: 1 Height 153 cm (04/30/21 8:16 AM) Weight 50.0 kg (04/30/21 8:16 AM) Body Mass Index [18.5-24.99] 21.36 (04/30/21 8:16 AM) Blood Pressure [90-138/55-84 mm Hg] 102/ 53mm Hg (04/30/21 8:16 AM) Blood pressure sites Arm, right (04/30/21 8:16 AM) Weight Obtained Via Standing scale (04/30/21 8:16 AM) Social History Social History Type Response Smoking Status Never (less than 100 in lifetime) entered on: 05/28/19 Sex
--- OUTSIDE RECORDS SUMMARY | 2023-01-01 22:02 | XMS_ITS | Continuity of Care Document ---
Author Name Unknown Organization [facility] Address [address], [address] [place] [address]- Care Team Providers Care Die Filer Name Role Phone Branch Rosa PEÑA Primary Care Physician [facility] Date[facility]s): 01/30/21 - 03/01/21 [facility] [place] [facility] [address], [address] [place] [address]- Attending Physician: Vanesa Oquendo Admitting Physician: Vanesa Oquendo Referring Physician: AdmtrVanesa Allergies, Adverse Reactions, Alerts Substance Reaction Severity Status Other Food Allergy 1 vomiting Active 1Candy [place] Immunizations Given and Recorded Vaccine Date Status [...] (old term) 01 Given 1Admin Note: [facility] [id number] 2Admin Note: VIS dated 05/24/11 given 3Admin [...] 02/18/20 17:57:00 EDT, Ointment, [facility] #[id number], 1 application Topically 3 times a day,x7 days, 152.5, cm, 08/31/19 15:09:00 EST, Height, 49.6, kg, 06/29/19 10:29:0... Start Date: 02/18/20 Stop Date: 02/25/20 Status: Ordered hydrocortisone topical 25 mg suppository 1 supp = 25 mg, Rectally, 2 times a day, # 28 supp, 1 Refills, Maintenance, 08/10/20 15:14:00 EST, Suppository, [facility] #[id number], Partial fill upon patient request if the prescription is for a schedule II opioid drug., 152.5, cm, 07/14/20 1... Start Date: 08/10/20 Stop Date: 09/07/20 Status: Ordered ibuprofen 400 mg oral tablet 400 mg, 1, tablet, By Mouth, Every 6 hours, PRN, # 30 tablet, Refills 2, Tot. Refills 2, Maintenance, as needed for menstrual pain, 06/29/19 10:54:35 EST, Route to Pharmacy Electronically, [id number], [facility] #[id number] Start Date: 06/29/19 Status: Ordered Xulane 150 mcg-35 mcg/24 hr transdermal film, extended release See Instructions, 1 patch Topically apply a new patch weekly for 3 weeks, remove for 1 week, then repeat cycle, # 9 each, 5 Refills, Maintenance, 08/31/19 15:18:00 EST, [facility] #[id number], 1patch Topically; apply a new patch weekly [...]
--- OUTSIDE RECORDS SUMMARY | 2023-01-01 22:02 | XMS_ITS | Continuity of Care Document ---
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 Name Role Phone Branch Rosa PEÑA Primary Care Physician [facility]): 09/24/21 - 10/24/21 [facility] [address] [place] [address]- Allergies, Adverse Reactions, Alerts Substance Reaction Severity Status Other Food Allergy 1 vomiting Active 1Candy [place] Immunizations Given and Recorded Vaccine Date Status [...] Vaccine (old term) 01 Given 1Admin Note: [facility] [id number] 2Admin Note: VIS dated 05/24/11 given 3Admin [...] 04/30/22 8:23:00 EDT, 04/30/21 8:23:00 EDT, [facility], [id number], Partial fill upon patient request if the prescription is for a schedule II opioid drug., 1 application T... Start Date: 04/30/21 Stop Date: 04/30/22 Status: Ordered fluconazole 200 mg oral tablet 1 tablet = 200 mg, By Mouth, Daily, for 7 days, # 7 tablet, 0 Refills, Acute 10/30/21 16:08:00 EDT,10/23/21 16:08:00 EDT, Tablet, [facility] #[id number], Partial fill upon patient request if the prescription is for a schedule II opioid drug., 15... Start Date: 10/23/21 Stop Date: 10/30/21 Status: Ordered hydrocortisone 2.5% topical ointment 1 application, Topically, 3 times a day, # 20 Gm, 0 Refills, Maintenance, 02/18/20 17:57:00 EDT, Ointment, [facility] #[id number], 1 application Topically 3 times a day,x7 days, 152.5, cm, 08/31/19 15:09:00 EST, Height, 49.6, kg, 06/29/19 10:29:0... Start Date: 02/18/20 Stop Date: 02/25/20 Status: Ordered hydrocortisone topical 25 mg suppository 1 supp = 25 mg, Rectally, 2 times a day, # 28 supp, 1 Refills, Maintenance, 08/10/20 15:14:00 EST, Suppository, [facility] #[id number], Partial fill upon patient request if the prescription is for a schedule II opioid drug., 152.5, cm, 07/14/20 1... Start Date: 08/10/20 Stop Date: 09/07/20 Status: Ordered ibuprofen 400 mg oral tablet 400 mg, 1, tablet, By Mouth, Every 6 hours, PRN, # 30 tablet, Refills 2, Tot. Refills 2, Maintenance, as needed for menstrual pain, 06/29/19 10:54:35 EST, Route to Pharmacy Electronically, [id number], [facility] #[id number] Start Date: 06/29/19 Status: Ordered omeprazole 20 mg oral enteric coated capsule 1 capsule = 20 mg, By Mouth, Daily, # 14 capsule, 1 Refills, Maintenance, 09/25/21 12:16:00 EST, ECCapsule, [facility] #[id number], Partial fill upon patient request if the [...]
--- OUTSIDE RECORDS SUMMARY | 2023-01-01 22:02 | XMS_ITS | Continuity of Care Document ---
Author Name Unknown Organization [facility] Address [address] [place] [address]- Care Team Providers Care Supervisor Blood Name Role Phone Branch Rosa PEÑA Primary Care Physician [facility] Date[facility]): 01[facility]30[facility]21 - 02/06/21 [facility] [address], [address] [place] [address]- Attending Physician: Lukasz PEÑA, Ana Corona Allergies, Adverse Reactions, Alerts Substance Reaction Severity Status Other Food Allergy 1 vomiting Active 1Candy [place] Immunizations Given and Recorded Vaccine Date Status [...] term) 01 Given 1Admin Note: [facility] [id number] 2Admin Note: VIS dated 05/24/11 given 3Admin Note: VIS dated 09/03/11 given 4Admin Note: VIS dated 10/22/2007 given 5Admin Note: VIS sheet dated 02/10/12 given 6Admin Note: vis given 08.10 7Admin Note: VIS 04/09/09 GIVEN 8Admin Note: VIS05/12/09 GIVEN 9Admin Note: POLIO(oral) 10Admin Note: POLIO(oral) 11Admin Note: POLIO(oral) 12Admin Note: POLIO(oral) Medications Flagyl 500 mg oral tablet 1 tablet = 500 mg, By Mouth, Every 12 hours, for 7 days, # 14 tablet, 0 Refills, Acute 02/07/21 9:33:00 EDT, 01/31/21 9:33:00 EDT, Tablet, [facility] #[id number], Partial fill upon patient request if the prescription is for a schedule II opioid d... Start Date: 01/31/21 Stop Date: 02/07/21 Status: Ordered hydrocortisone 2.5% topical ointment 1 application, Topically, 3 times a day, # 20 Gm, 0 Refills, Maintenance, 02/18/20 17:57:00 EDT, Ointment, [facility] #[id number], 1 application Topically 3 times a day,x7 days, 152.5, cm, 08/31/19 15:09:00 EST, Height, 49.6, kg, 06/29/19 10:29:0... Start Date: 02/18/20 Stop Date: 02/25/20 Status: Ordered hydrocortisone topical 25 mg suppository 1 supp = 25 mg, Rectally, 2 times a day, # 28 supp, 1 Refills, Maintenance, 08/10/20 15:14:00 EST, Suppository, [facility] #[id number], Partial fill upon patient request if the prescription is for a schedule II opioid drug., 152.5, cm, 07/14/20 1... Start Date: 08/10/20 Stop Date: 09/07/20 Status: Ordered ibuprofen 400 mg oral tablet 400 mg, 1, tablet, By Mouth, Every 6 hours, PRN, # 30 tablet, Refills 2, Tot. Refills 2, Maintenance, as needed for menstrual pain, 06/29/19 10:54:35 EST, Route to Pharmacy Electronically, [id number], [facility] #[id number] Start Date: 06/29/19 Status: Ordered Xulane 150 mcg-35 mcg/24 hr transdermal film, extended release See Instructions, 1 patch Topically apply a new patch weekly for 3 weeks, remove for 1 week, then repeat cycle, # 9 each, 5 Refills, Maintenance, 08/31/19 15:18:00 EST, [facility] #[id number], 1patch Topically; apply a new patch weekly for 3 we... Start Date: 08/31/19 Status: Ordered Problem List Condition Effective Dates Status Health Status Inform ant Dysmenorrhea in adolescent(Confirmed) Active Bilateral fibrocystic breast disease(Confirmed) Active Irritable bowel syndrome (IBS)(Confirmed) Active Mild scoliosis(Confirmed) Active Vital Signs Most recent to oldest [Reference Range]: 1 Height 152.5 cm (01/30/21 2:10 PM) Weight 52.2 kg (01/30/21 2:10 PM) Body Mass Index [18.5-24.99] 22.45 (01/30/21 2:10 PM) Blood Pressure [90-138/55-84 mm Hg] 113/ 69mm Hg (01/30/21 2:10 PM) Blood pressure sites Arm, right (01/30/21 2:10 PM) Weight Obtained Via Standing scale (01/30/21 2:10 PM) Social History Social History Type Response Smoking Status Never (less than 100 in lifetime) entered on: 05/28/19 Sex
--- OUTSIDE RECORDS SUMMARY | 2023-01-01 22:02 | XMS_ITS | Continuity of Care Document ---
Author Name Unknown Organization [facility] Address [address], [address] [place] [address]- Care Team Providers Care Food Tray Assembler Name Role Phone Rosa Gonzalez MD Primary Care Physician [facility] Date[facility]): 04/04/21 - 04/11/21 [facility] [address], [address]th [place] [address]- Attending Physician: Not on Staff, Attending MD Referring Physician: Rosa Gonzalez MD Allergies, Adverse Reactions, Alerts Substance Reaction Severity Status Other Food Allergy 1 vomiting Active 1Candy [place] Immunizations Given and Recorded Vaccine Date Status [...] Given 1Admin Note: [facility] [id number] 2Admin Note: VIS dated 05/24/11 given 3Admin [...] Refills, Soft Stop, 03/22/21 9:44:00 EDT, Tablet, [facility] #[id number], Partial fill upon patient request if the prescription is for a scheduleII opioid drug., 152.5, cm, 01/30/21 14:10:00 EDT,... Start Date: 03/22/21 Status: Ordered Diflucan 150 mg oral tablet 1 tablet = 150 mg, By Mouth, Once, # 1 tablet, 0 Refills, Soft Stop, 03/20/21 13:51:00 EDT, Tablet,[facility] #[id number], Partial fill upon patient request if the prescription is for a schedule II opioid drug., 152.5, cm, 01/30/21 14:10:00 EDT,... Start Date: 03/20/21 Status: Ordered hydrocortisone 2.5% topical ointment 1 application, Topically, 3 times a day, # 20 Gm, 0 Refills, Maintenance, 02/18/20 17:57:00 EDT, Ointment, [facility] #[id number], 1 application Topically 3 times a day,x7 days, 152.5, cm, 08/31/19 15:09:00 EST, Height, 49.6, kg, 06/29/19 10:29:0... Start Date: 02/18/20 Stop Date: 02/25/20 Status: Ordered hydrocortisone topical 25 mg suppository 1 supp = 25 mg, Rectally, 2 times a day, # 28 supp, 1 Refills, Maintenance, 08/10/20 15:14:00 EST, Suppository, [facility] #[id number], Partial fill upon patient request if the prescription is for a schedule II opioid drug., 152.5, cm, 07/14/20 1... Start Date: 08/10/20 Stop Date: 09/07/20 Status: Ordered ibuprofen 400 mg oral tablet 400 mg, 1, tablet, By Mouth, Every 6 hours, PRN, # 30 tablet, Refills 2, Tot. Refills 2, Maintenance, as needed for menstrual pain, 06/29/19 10:54:35 EST, Route to Pharmacy Electronically, [id number], [facility] #[id number] Start Date: 06/29/19 Status: Ordered Xulane 150 mcg-35 mcg/24 hr transdermal film, extended release See Instructions, 1 patch Topically apply a new patch weekly for 3 weeks, remove for 1 week, then repeat cycle, # 9 each, 5 Refills, Maintenance, 08/31/19 15:18:00 [facility] #[id number], 1patch Topically; apply a new patch weekly for 3 we... Start Date: 08/31/19 Status: Ordered Problem List Condition Effective Dates Status Health Status Inform ant Dysmenorrhea in adolescent(Confirmed) Active Bilateral fibrocystic breast disease(Confirmed) Active Irritable bowel syndrome (IBS)(Confirmed) Active Mild scoliosis(Confirmed) Active Vital Signs Most recent to oldest [Reference Range]: 1 Height 153 cm (04/04/21 6:11 PM) Weight 50.5 kg (04/04/21 6:11 PM) Pulse Rate [55-90 bpm] 98 bpm *H* (04/04/21 6:11 PM) Body Mass Index [18.5-24.99] 21.57 (04/04/21 6:11 PM) Blood Pressure [90-138/55-84 mm Hg] 116/ 79mm Hg (04/04/21 6:11 PM) Blood pressure sites Arm, right (04/04/21 6:11 PM) Dry Weight 50.5 kg (04/04/21 6:11 PM) Weight Obtained Via Standing scale (04/04/21 6:11 PM) Dry Weight Obtained Via Standing scale (04/04/21 6:11 PM) Social History Social History Type Response Smoking Status Never (less than 100 in lifetime) entered on: 05/28/19 Sex
--- OUTSIDE RECORDS SUMMARY | 2023-01-01 22:02 | XMS_ITS | Continuity of Care Document ---
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 Name Role Phone Branch Rosa PEÑA Primary Care Physician [facility] Date[facility]s): 10/23/21 - 10/30/21 [facility] [address], [address]th [place] [address]- Attending Physician: Not on Staff, Attending MD Referring Physician: Not on Staff, Referring MD Allergies, Adverse Reactions, Alerts Substance Reaction Severity Status Other Food Allergy 1 vomiting Active 1Candy [place] Immunizations Given and Recorded Vaccine Date Status [...] Vaccine (old term) 01 Given 1Admin Note: [facility] [id number] 2Admin Note: VIS dated 05/24/11 given 3Admin [...] 04/30/22 8:23:00 EDT, 04/30/21 8:23:00 EDT, Cream, [facility] #[id number], Partial fill upon patient request if the prescription is for a schedule II opioid drug., 1 application T... Start Date: 04/30/21 Stop Date: 04/30/22 Status: Ordered hydrocortisone 2.5% topical ointment 1 application, Topically, 3 times a day, # 20 Gm, 0 Refills, Maintenance, 02/18/20 17:57:00 EDT, Ointment, [facility] #[id number], 1 application Topically 3 times a day,x7 days, 152.5, cm, 08/31/19 15:09:00 EST, Height, 49.6, kg, 06/29/19 10:29:0... Start Date: 02/18/20 Stop Date: 02/25/20 Status: Ordered hydrocortisone topical 25 mg suppository 1 supp = 25 mg, Rectally, 2 times a day, # 28 supp, 1 Refills, Maintenance, 08/10/20 15:14:00 EST, Suppository, [facility] #[id number], Partial fill upon patient request if the prescription is for a schedule II opioid drug., 152.5, cm, 07/14/20 1... Start Date: 08/10/20 Stop Date: 09/07/20 Status: Ordered ibuprofen 400 mg oral tablet 400 mg, 1, tablet, By Mouth, Every 6 hours, PRN, # 30 tablet, Refills 2, Tot. Refills 2, Maintenance, as needed for menstrual pain, 06/29/19 10:54:35 EST, Route to Pharmacy Electronically, [id number], [facility] #[id number] Start Date: 06/29/19 Status: Ordered metroNIDAZOLE 500 mg oral tablet 1 tablet = 500 mg, By Mouth, 2 times a day, for 7 days, # 14 tablet, 0 Refills, Acute 11/01/21 16:24:00 EDT, 10/25/21 16:24:00 EDT, [facility] #[id number], Partial fill upon patient request if the prescription is for a schedule II opioid drug., 1... Start Date: 10/25/21 Stop Date: 11/01/21 Status: Ordered omeprazole 20 mg oral enteric coated capsule 1 capsule = 20 mg, By Mouth, Daily, # 30 capsule, 2 Refills, Maintenance, 10/26/21 17:58:00 [facility][id number], Partial fill upon patient request if the [...] recent to oldest [Reference Range]: 1 Height 153.5 cm (10/23/21 3:50 PM) Weight 52.72 kg (10/23/21 3:50 PM) Body Mass Index [18.5-24.99] 22.37 (10/23/21 3:50 PM) Blood Pressure [90-138/55-84 mm Hg] 108/ 62mm Hg (10/23/21 3:50 PM) Blood pressure sites Arm, left (10/23/21 3:50 PM) Weight Obtained Via Standing scale (10/23/21 3:50 PM) Social History Social History Type Response Smoking Status Never (less than 100 in lifetime) entered on: 05/28/19 Sex
--- OUTSIDE RECORDS SUMMARY | 2023-01-01 22:02 | XMS_ITS | Continuity of Care Document ---
Author Name Unknown Organization [facility] Address [address], [address] [place] [address]- Care Team Providers Care Train Control Electronic Technician Name Role Phone Branch Rosa PEÑA Primary Care Physician [facility]s): 03/20/21 - 04/19/21 [facility] [address], [address] [place] [address]- Allergies, Adverse Reactions, Alerts Substance Reaction Severity Status Other Food Allergy 1 vomiting Active 1Candy [place] Immunizations Given and Recorded Vaccine Date Status [...] (old term) 01 Given 1Admin Note: [facility] [id number] 2Admin Note: VIS dated 05/24/11 given 3Admin [...] 3 Refills, Maintenance, 04/18/21 16:50:00 EDT, Tablet, [facility] #[id number], Partial fill upon patient request if the prescription is for a schedule II opioid drug., 1 tablet By Mouth Daily, 153, cm, 090... Start Date: 04/18/21 Status: Ordered Diflucan 150 mg oral tablet 1 tablet = 150 mg, By Mouth, Once, # 1 tablet, 0 Refills, Soft Stop, 03/22/21 9:44:00 EDT, Tablet, [facility] #[id number], Partial fill upon patient request if the prescription is for a scheduleII opioid drug., 152.5, cm, 01/30/21 14:10:00 EDT,... Start Date: 03/22/21 Status: Ordered Diflucan 150 mg oral tablet 1 tablet = 150 mg, By Mouth, Once, # 1 tablet, 0 Refills, Soft Stop, 03/20/21 13:51:00 EDT, Tablet,[facility] #[id number], Partial fill upon patient request if the prescription is for a schedule II opioid drug., 152.5, cm, 01/30/21 14:10:00 EDT,... Start Date: 03/20/21 Status: Ordered hydrocortisone 2.5% topical ointment 1 application, Topically, 3 times a day, # 20 Gm, 0 Refills, Maintenance, 02/18/20 17:57:00 EDT, Ointment, [facility] #[id number], 1 application Topically 3 times a day,x7 days, 152.5, cm, 08/31/19 15:09:00 EST, Height, 49.6, kg, 06/29/19 10:29:0... Start Date: 02/18/20 Stop Date: 02/25/20 Status: Ordered hydrocortisone topical 25 mg suppository 1 supp = 25 mg, Rectally, 2 times a day, # 28 supp, 1 Refills, Maintenance, 08/10/20 15:14:00 EST, Suppository, [facility] #[id number], Partial fill upon patient request if the prescription is for a schedule II opioid drug., 152.5, cm, 07/14/20 1... Start Date: 08/10/20 Stop Date: 09/07/20 Status: Ordered ibuprofen 400 mg oral tablet 400 mg, 1, tablet, By Mouth, Every 6 hours, PRN, # 30 tablet, Refills 2, Tot. Refills 2, Maintenance, as needed for menstrual pain, 06/29/19 10:54:35 EST, Route to Pharmacy Electronically, [id number], [id number] Start Date: 06/29/19 Status: Ordered Problem List [...]
--- OUTSIDE RECORDS SUMMARY | 2023-01-01 22:02 | XMS_ITS | Continuity of Care Document ---
Author Name Unknown Organization [facility] [employer] Address [address], [address] [place] [address]- Care Team Providers Care Student Support Advisor Name Role Phone Branch Rosa PEÑA Primary Care Physician [facility] Date[facility]s): 10/23/21 - 11/22/21 [facility] [address], [address]th [address] [place], [place] [address] Attending Physician: Vanesa Oquendo Admitting Physician: Vanesa Oquendo Referring Physician: Vanesa Oquendo Allergies, Adverse Reactions, Alerts Substance Reaction Severity Status Other Food Allergy 1 vomiting Active 1Candy [place] Immunizations Given and Recorded Vaccine Date Status [...] (old term) 01 Given 1Admin Note: [facility] [id number] 2Admin Note: VIS dated 05/24/11 given 3Admin [...] 04/30/22 8:23:00 EDT, 04/30/21 8:23:00 EDT, Cream, [facility] #[id number], Partial fill upon patient request if the prescription is for a schedule II opioid drug., 1 application T... Start Date: 04/30/21 Stop Date: 04/30/22 Status: Ordered hydrocortisone 2.5% topical ointment 1 application, Topically, 3 times a day, # 20 Gm, 0 Refills, Maintenance, 02/18/20 17:57:00 EDT, Ointment, [facility] #[id number], 1 application Topically 3 times a day,x7 days, 152.5, cm, 08/31/19 15:09:00 EST, Height, 49.6, kg, 06/29/19 10:29:0... Start Date: 02/18/20 Stop Date: 02/25/20 Status: Ordered hydrocortisone topical 25 mg suppository 1 supp = 25 mg, Rectally, 2 times a day, # 28 supp, 1 Refills, Maintenance, 08/10/20 15:14:00 EST, Suppository, [facility] #[id number], Partial fill upon patient request if the prescription is for a schedule II opioid drug., 152.5, cm, 07/14/20 1... Start Date: 08/10/20 Stop Date: 09/07/20 Status: Ordered ibuprofen 400 mg oral tablet 400 mg, 1, tablet, By Mouth, Every 6 hours, PRN, # 30 tablet, Refills 2, Tot. Refills 2, Maintenance, as needed for menstrual pain, 06/29/19 10:54:35 EST, Route to Pharmacy Electronically, [id number], [facility] #[id number] Start Date: 06/29/19 Status: Ordered omeprazole 20 mg oral enteric coated capsule 1 capsule = 20 mg, By Mouth, Daily, # 30 capsule, 2 Refills, Maintenance, 10/26/21 17:58:00 EDT, ECCapsule, [facility] #[id number], Partial fill upon patient request if the [...]
--- OUTSIDE RECORDS SUMMARY | 2023-01-01 22:02 | XMS_ITS | Continuity of Care Document ---
Author Name Unknown Organization [facility] Address [address] [place] [address]- Care Team Providers Care Commercial Real Estate Paralegal Name Role Phone Branch Rosa PEÑA Primary Care Physician [place] [facility] [place] - 05/29/22 [facility] [address] [place] [address]- Attending Physician: Vanesa Oquendo Admitting Physician: Vanesa Oquendo Referring Physician: AdmtrVanesa Allergies, Adverse Reactions, Alerts Substance Reaction Severity Status Other Food Allergy 1 vomiting Active 1Candy [place] Immunizations Given and Recorded Vaccine Date Status [...] Vaccine (old term) 01 Given 1Admin Note: [facility] [id number] 2Admin Note: VIS dated 05/24/11 given 3Admin Note: VIS dated 09/03/11 given 4Admin Note: VIS dated 10/22/2007 given 5Admin Note: VIS sheet dated 02/10/12 given 6Admin Note: vis given 08.10 7Admin Note: VIS 04/09/09 GIVEN 8Admin Note: VIS05/12/09 GIVEN 9Admin Note: POLIO(oral) 10Admin Note: POLIO(oral) 11Admin Note: POLIO(oral) 12Admin Note: POLIO(oral) Medications famotidine 20 mg oral tablet 20 mg, 1, tablet, By Mouth, 2 times a day, # 60 tablet, Refills 2, Tot. Refills 2, Maintenance, 01/14/22 16:24:00 EDT, Route to Pharmacy Electronically, [facility] #[id number], Partial fill uponpatient request if the prescription is for a schedu... Start Date: 01/14/22 Status: Ordered omeprazole 20 mg oral enteric coated capsule 1 capsule = 20 mg, By Mouth, Daily, # 30 tablet, 1 Refills, Maintenance, 04/29/22 16:40:00 EDT, [facility] #[id number], Partial fill upon patient request if the prescription is for a schedule IIopioid drug., 152.4, cm, 04/29/22 16:10:00 EDT, Hei... Start Date: 04/29/22 Status: Ordered Problem List Condition Confirmation Course Effective Dates Status H ealth Status Informant Dysmenorrhea in adolescent Confirmed Active Bilateral fibrocystic breast disease Confirmed Active Irritable bowel syndrome (IBS) Confirmed Active General counseling and advice on female contraception Confirmed Active Mild scoliosis Confirmed Active Pap smear not due until age 21 Confirmed Active Vaginal pain Confirmed Active Social History Social History Type Response Smoking Status Never (less than 100 in lifetime) entered on: 05/28/19 Sex Patient Care team information Personnel Name: Rosa Gonzalez MD Address: Address: [address] [place] [address], [facility] [place], [place] [address]
--- OUTSIDE RECORDS SUMMARY | 2023-01-01 22:02 | XMS_ITS | Continuity of Care Document ---
Author Name Unknown Organization [facility] Address [address] [place] [address]- Care Team Providers Care Concierge Receptionist Name Role Phone Branch Rosa PEÑA Primary Care Physician [facility] Date[facility]s): 02/01/22 - 03/03/22 [facility] [address] [place] [address]- Allergies, Adverse Reactions, Alerts Substance Reaction Severity Status Other Food Allergy 1 vomiting Active 1Candy [place] Immunizations Given and Recorded Vaccine Date Status [...] (old term) 01 Given 1Admin Note: [facility] [id number] 2Admin Note: VIS dated 05/24/11 given 3Admin [...] 04/30/22 8:23:00 EDT, 04/30/21 8:23:00 EDT, Cream, [facility] #[id number], Partial fill upon patient request if the prescription is for a schedule II opioid drug., 1 application T... Start Date: 04/30/21 Stop Date: 04/30/22 Status: Ordered famotidine 20 mg oral tablet 20 mg, 1, tablet, By Mouth, 2 times a day, # 60 tablet, Refills 2, Tot. Refills 2, Maintenance, 01/14/22 16:24:00 EDT, Route to Pharmacy Electronically, [facility] #[id number], Partial fill uponpatient request if the prescription [...]
--- OUTSIDE RECORDS SUMMARY | 2023-01-01 22:02 | XMS_ITS | Continuity of Care Document ---
Author Name Unknown Organization [facility] Address [address] [place] [address]- Care Team Providers Care Broom Handle Dipper Name Role Phone Branch Rosa PEÑA Primary Care Physician [facility] Date[facility]s): 12/27/20 - 01/26/21 [facility] [address] [place], [place] [address] Allergies, Adverse Reactions, Alerts Substance Reaction Severity Status Other Food Allergy 1 vomiting Active 1Candy [place] Immunizations Given and Recorded Vaccine Date Status [...] Vaccine (old term) 01 Given 1Admin Note: [facility] [id number] 2Admin Note: VIS dated 05/24/11 given 3Admin [...] 0 Refills, Maintenance, 02/18/20 17:57:00 EDT, [facility], [facility][id number], 1 application Topically 3 times a day,x7 days, 152.5, cm, 08/31/19 15:09:00 EST, Height, 49.6, kg, 06/29/19 10:29:0... Start Date: 02/18/20 Stop Date: 02/25/20 Status: Ordered hydrocortisone topical 25 mg suppository 1 supp = 25 mg, Rectally, 2 times a day, # 28 supp, 1 Refills, Maintenance, 08/10/20 15:14:00 EST, Suppository, [facility] #[id number], Partial fill upon patient request if the prescription is for a schedule II opioid drug., 152.5, cm, 07/14/20 1... Start Date: 08/10/20 Stop Date: 09/07/20 Status: Ordered ibuprofen 400 mg oral tablet 400 mg, 1, tablet, By Mouth, Every 6 hours, PRN, # 30 tablet, Refills 2, Tot. Refills 2, Maintenance, as needed for menstrual pain, 06/29/19 10:54:35 EST, Route to Pharmacy Electronically, [id number], [facility] #[id number] Start Date: 06/29/19 Status: Ordered Xulane 150 mcg-35 mcg/24 hr transdermal film, extended release See Instructions, 1 patch Topically apply a new patch weekly for 3 weeks, remove for 1 week, then repeat cycle, # 9 each, 5 Refills, Maintenance, 08/31/19 15:18:00 EST, [facility] #[id number], 1patch Topically; apply a new patch weekly [...]
--- OUTSIDE RECORDS SUMMARY | 2023-01-01 22:03 | XMS_ITS | Continuity of Care Document ---
Author Name Unknown Organization [facility] Address [address] [place] [address]- Care Team Providers Care Battery Charger Tester Name Role Phone Rosa Gonzalez MD Primary Care Physician [facility] Date[facility]s): 10/26/20 - 11/02/20 [facility] [address] [place] [address]- Attending Physician: Tamera Vo DO Referring Physician: Rosa Gonzalez MD Allergies, Adverse Reactions, Alerts Substance Reaction Severity Status Other Food Allergy 1 vomiting Active 1Candy [place] Immunizations Given and Recorded Vaccine Date Status [...] Given 1Admin Note: [facility] [id number] 2Admin Note: VIS dated 05/24/11 given 3Admin [...] 0 Refills, Maintenance, 02/18/20 17:57:00 EDT, Ointment, [facility] #[id number], 1 application Topically 3 times a day,x7 days, 152.5, cm, 08/31/19 15:09:00 EST, Height, 49.6, kg, 06/29/19 10:29:0... Start Date: 02/18/20 Stop Date: 02/25/20 Status: Ordered hydrocortisone topical 25 mg suppository 1 supp = 25 mg, Rectally, 2 times a day, # 28 supp, 1 Refills, Maintenance, 08/10/20 15:14:00 EST, Suppository, [email or web address] #85515, Partial fill upon patient request if the prescription is for a schedule II opioid drug., 152.5, cm, 07/14/20 1... Start Date: 08/10/20 Stop Date: 09/07/20 Status: Ordered ibuprofen 400 mg oral tablet 400 mg, 1, tablet, By Mouth, Every 6 hours, PRN, # 30 tablet, Refills 2, Tot. Refills 2, Maintenance, as needed for menstrual pain, 06/29/19 10:54:35 EST, Route to Pharmacy Electronically, [id number], [email or web address] #[id number] Start Date: 06/29/19 Status: Ordered Xulane 150 mcg-35 mcg/24 hr transdermal film, extended release See Instructions, 1 patch Topically apply a new patch weekly for 3 weeks, remove for 1 week, then repeat cycle, # 9 each, 5 Refills, Maintenance, 08/31/19 15:18:00 EST, [email or web address] #[id number], 1patch Topically; apply a new patch weekly for 3 we... Start Date: 08/31/19 Status: Ordered Problem List Condition Effective Dates Status Health Status Inform ant Dysmenorrhea in adolescent(Confirmed) Active Bilateral fibrocystic breast disease(Confirmed) Active Irritable bowel syndrome (IBS)(Confirmed) Active Mild scoliosis(Confirmed) Active Vital Signs Most recent to oldest [Reference Range]: 1 Height 152.5 cm (10/26/20 3:34 PM) Oxygen Saturation [94-100 %] 100 % (10/26/20 3:34 PM) Pulse Rate [55-90 bpm] 62 bpm (10/26/20 3:34 PM) Blood Pressure [90-138/55-84 mm Hg] 122/ 63mm Hg (10/26/20 3:34 PM) Respiratory Rate [16-30 br/min] 18 br/mi n (10/26/20 3:34 PM) Temperature [96.8-100.4 DegF] 97.5 DegF (10/26/20 3:34 PM) Mode of Delivery (Oxygen) Room air (10/26/20 3:34 PM) Blood pressure sites Arm, left (10/26/20 3:34 PM) Temperature Route Temporal (10/26/20 3:34 PM) Social History Social History Type Response Smoking Status Never (less than 100 in lifetime) entered on: 05/28/19 Sex
--- OUTSIDE RECORDS SUMMARY | 2023-01-01 22:03 | XMS_ITS | Continuity of Care Document ---
Author Name Unknown Organization [facility] Address [address], [address] [place] [address]- Care Team Providers Care Manager Supply Chain Name Role Phone Branch Rosa PEÑA Primary Care Physician [facility] Date[facility]s): 08/31/19 - 09/10/19 [facility] [address] [place] [address]- Attending Physician: Vanesa Oquendo Admitting Physician: Vanesa Oquendo Referring Physician: AdmtrVanesa Allergies, Adverse Reactions, Alerts Substance Reaction Severity Status Other Food Allergy 1 vomiting Active 1Candy [place] Immunizations Given and Recorded Vaccine Date Status [...] Vaccine (old term) 01 Given 1Admin Note: [facility] [id number] 2Admin Note: VIS dated 05/24/11 given 3Admin [...] 06/29/19 10:54:35 EST, Route to Pharmacy Electronically, [id number], [facility] #[id number] Start Date: 06/29/19 Status: Ordered Xulane 150 mcg-35 mcg/24 hr transdermal film, extended release See Instructions, 1 patch Topically apply a new patch weekly for 3 weeks, remove for 1 week, then repeat cycle, # 9 each, 5 Refills, Maintenance, 08/31/19 15:18:00 EST, [facility] #[id number], 1patch Topically; apply a new patch weekly [...]
--- OUTSIDE RECORDS SUMMARY | 2023-01-01 22:03 | XMS_ITS | Continuity of Care Document ---
Author Name Unknown Organization [facility] Address [address] [place] [id number]- Care Team Providers Care Chemical Lab Technician Name Role Phone Branch Rosa PEÑA Primary Care Physician [facility] Date[facility]): 12/14/21 - 01/13/22 [facility] [address] [place] [address]- Allergies, Adverse Reactions, Alerts Substance Reaction Severity Status Other Food Allergy 1 vomiting Active 1Candy [place] Immunizations Given and Recorded Vaccine Date Status [...] Given 1Admin Note: [facility] [id number] 2Admin Note: VIS dated 05/24/11 given 3Admin [...] 04/30/22 8:23:00 EDT, 04/30/21 8:23:00 EDT, Cream[id number], Partial fill upon patient request if the [...]
--- OUTSIDE RECORDS SUMMARY | 2023-01-01 22:03 | XMS_ITS | Continuity of Care Document ---
Author Name Unknown Organization [facility] Address [address] [place] [id number]- Care Team Providers Care Esl Instructional Assistant Name Role Phone Rosa Gonzalez MD Primary Care Physician Encounter [facility] Date(s): 03/23/21 - 04/27/21 [facility] [address] [place] [id number]- Attending Physician: Rosa Gonzalez MD Admitting Physician: Rosa Gonzalez MD Allergies, Adverse Reactions, Alerts Substance Reaction Severity Status Other Food Allergy 1 vomiting Active 1Candy [place] Immunizations Given and Recorded Vaccine Date Status [...] Vaccine (old term) 01 Given 1Admin Note: [facility] [id number] 2Admin Note: VIS dated 05/24/11 given 3Admin [...] 3 Refills, Maintenance, 04/18/21 16:50:00 EDT, Tablet, [facility] #[id number], Partial fill upon patient request if the prescription is for a schedule II opioid drug., 1 tablet By Mouth Daily, 153, cm, 090... Start Date: 04/18/21 Status: Ordered Diflucan 150 mg oral tablet 1 tablet = 150 mg, By Mouth, Once, # 1 tablet, 0 Refills, Soft Stop, 03/22/21 9:44:00 EDT, Tablet, [facility] #[id number], Partial fill upon patient request if the prescription is for a scheduleII opioid drug., 152.5, cm, 01/30/21 14:10:00 EDT,... Start Date: 03/22/21 Status: Ordered Diflucan 150 mg oral tablet 1 tablet = 150 mg, By Mouth, Once, # 1 tablet, 0 Refills, Soft Stop, 03/20/21 13:51:00 EDT, Tablet,[facility] #[id number], Partial fill upon patient request if the prescription is for a schedule II opioid drug., 152.5, cm, 01/30/21 14:10:00 EDT,... Start Date: 03/20/21 Status: Ordered hydrocortisone 2.5% topical ointment 1 application, Topically, 3 times a day, # 20 Gm, 0 Refills, Maintenance, 02/18/20 17:57:00 EDT, Ointment, [facility] #[id number], 1 application Topically 3 times a day,x7 days, 152.5, cm, 08/31/19 15:09:00 EST, Height, 49.6, kg, 06/29/19 10:29:0... Start Date: 02/18/20 Stop Date: 02/25/20 Status: Ordered hydrocortisone topical 25 mg suppository 1 supp = 25 mg, Rectally, 2 times a day, # 28 supp, 1 Refills, Maintenance, 08/10/20 15:14:00 EST, Suppository, [facility] #[id number], Partial fill upon patient request if the prescription is for a schedule II opioid drug., 152.5, cm, 07/14/20 1... Start Date: 08/10/20 Stop Date: 09/07/20 Status: Ordered ibuprofen 400 mg oral tablet 400 mg, 1, tablet, By Mouth, Every 6 hours, PRN, # 30 tablet, Refills 2, Tot. Refills 2, Maintenance, as needed for menstrual pain, 06/29/19 10:54:35 EST, Route to Pharmacy Electronically, [id number], [id number] Start Date: 06/29/19 Status: Ordered Problem List [...]
--- OUTSIDE RECORDS SUMMARY | 2023-01-01 22:03 | XMS_ITS | Continuity of Care Document ---
Author Name Unknown Organization [facility] [employer] Address [address] [place] [address]- Care Team Providers Care Electric Shovel Operator Name Role Phone Branch Rosa PEÑA Primary Care Physician Encounter [facility] Date(s[facility] 04/30/21 - 06/17/21 [facility] [employer] [facility] [address] [place], [place] [address] Attending Physician: Celia Calzada MD Referring Physician: Vazquez PEÑA [OB], Mirian Otoole Allergies, Adverse Reactions, Alerts Substance Reaction Severity Status Other Food Allergy 1 vomiting Active 1Candy [place] Immunizations Given and Recorded Vaccine Date Status [...] Vaccine (old term) 01 Given 1Admin Note: [facility] [id number] 2Admin Note: VIS dated 05/24/11 given 3Admin [...] 04/18/21 16:50:00 EDT, Tablet, [facility] #[id number], Partial fill upon patient request if the prescription is for a schedule II opioid drug., 1 tablet By Mouth Daily, 153, cm, 0... Start Date: 04/18/21 Status: Ordered betamethasone-clotrimazole 0.05%-1% topical cream 1 application, Topically, 2 times a day, # 45 Gm, 0 Refills, Acute 04/30/22 8:23:00 EDT, 04/30/21 8:23:00 EDT, Cream, [facility] #[id number], Partial fill upon patient request if the prescription is for a schedule II opioid drug., 1 application T... Start Date: 04/30/21 Stop Date: 04/30/22 Status: Ordered Diflucan 150 mg oral tablet 1 tablet = 150 mg, By Mouth, Once, # 1 tablet, 0 Refills, Soft Stop, 03/22/21 9:44:00 EDT, Tablet, [facility] #[id number], Partial fill upon patient request if the prescription is for a scheduleII opioid drug., 152.5, cm, 01/30/21 14:10:00 EDT,... Start Date: 03/22/21 Status: Ordered Diflucan 150 mg oral tablet 1 tablet = 150 mg, By Mouth, Once, # 1 tablet, 0 Refills, Soft Stop, 03/20/21 13:51:00 EDT, Tablet,[facility] #[id number], Partial fill upon patient request if the prescription is for a schedule II opioid drug., 152.5, cm, 01/30/21 14:10:00 EDT,... Start Date: 03/20/21 Status: Ordered hydrocortisone 2.5% topical ointment 1 application, Topically, 3 times a day, # 20 Gm, 0 Refills, Maintenance, 02/18/20 17:57:00 EDT, Ointment, [facility] #[id number], 1 application Topically 3 times a day,x7 days, 152.5, cm, 08/31/19 15:09:00 EST, Height, 49.6, kg, 06/29/19 10:29:0... Start Date: 02/18/20 Stop Date: 02/25/20 Status: Ordered hydrocortisone topical 25 mg suppository 1 supp = 25 mg, Rectally, 2 times a day, # 28 supp, 1 Refills, Maintenance, 08/10/20 15:14:00 EST, Suppository, [facility] #[id number], Partial fill upon patient request if the prescription is for a schedule II opioid drug., 152.5, cm, 07/14/20 1... Start Date: 08/10/20 Stop Date: 09/07/20 Status: Ordered ibuprofen 400 mg oral tablet 400 mg, 1, tablet, By Mouth, Every 6 hours, PRN, # 30 tablet, Refills 2, Tot. Refills 2, Maintenance, as needed for menstrual pain, 06/29/19 10:54:35 EST, Route to Pharmacy Electronically, [id number], [facility] #[id number] Start Date: 06/29/19 Status: Ordered Problem List [...]
[2023-01-01] MEDS: Dicyclomine HCl 10 MG CAPSULE 20 MG PO (23:00)
[2023-01-01] MEDS: Ondansetron ODT 4 MG TAB.RAPDIS TRANSLINGU (23:00)
[2023-01-01 23:30] LABS: Appearance Urine Clear; Color Urine Dark Yellow; Glucose Urine UA Negative (Negative); Leukocyte Esterase Urine Negative (Negative); Nitrite Urine Negative (Negative); PH 5.5 (5.0-9.0); Specific Gravity - Urine 1.025 (1.005-1.025); Urine Blood Negative (Negative); Urine Ketones Trace mg/dL (Negative); Urine Protein Negative (Neg-Trace)
[2023-01-01 23:32] LABS: UPreg QC Valid YES; Urine Pregnancy NEGATIVE (NEGATIVE)
--- NOTE | 2023-01-01 23:50 | PC.NURSE ---
Patient medicated as per MAR. Urine specimen colected for UA and . Patient offers no complaints at this time. Will continue to follow plan of care.
[2023-01-02] MEDS: metroNIDAZOLE 500 MG TABLET PO (00:55)
[2023-01-02] MEDS: levoFLOXacin 500 MG TABLET PO (00:55)
== END 2023-01-02 01:00 | disposition home or self-care (01) ==
PROVIDERS: Physician Assistant; Emergency Provider Internal Medicine; PCP Pediatrics
DX: K52.9 Noninfective gastroenteritis and colitis, unspecified (principal); R11.2 Nausea with vomiting, unspecified
CPT/HCPCS: 36415; 80048; 80076; 81003; 81025; 83690; 83735; 85025; 99282; 99283